=== PATIENT | male | born 1950 | race Caucasian/White ===

== ENCOUNTER 2019-07-25 13:52 | Inpatient (IN) ==
[2019-07-25] MEDS ORDERED: Furosemide 40 MG/4 ML VIAL IVP ONE (15:40)
[2019-07-25 15:43] LABS: White Blood Count 11.4 K/mcL (4.3-11.1)
[2019-07-25 15:44] LABS: Basophils # 0.1 K/mcL (0.0-0.2); Basophils % 0.7 %; Eosinophils # 0.4 K/mcL (0.0-0.6); Eosinophils % 3.2 %; Hematocrit 42.3 % (37.5-50.1); Immature Granulocytes % 0.5 % (0-4); Lymphocytes # 2.2 K/mcL (0.6-4.6); Lymphocytes % 18.9 %; Mean Corpuscular HGB Conc 33.1 g/dL (31.6-35.5); Mean Corpuscular Hemoglobin 27.7 pg (28.0-33.3); Mean Corpuscular Volume 83.6 fL (83.0-100.0); Mean Platelet Volume 10.5 fL (9.4-12.4); Monocytes # 0.9 K/mcL (0.0-1.3); Monocytes % 7.5 %; Neutrophils # 7.9 K/mcL (1.6-8.9); Platelet Count 299 K/mcL (140-400); Red Blood Count 5.06 M/mcL (4.19-5.50); Red Cell Distribution Width 14.8 % (11.5-14.5); Segmented Neutrophils % 69.2 %
[2019-07-25 16:01] LABS: BUN/Creatinine Ratio 13 (6-26); Blood Urea Nitrogen 12 mg/dL (8-23); Calcium 9.2 mg/dL (8.6-10.3); Carbon Dioxide 27 mEq/L (23-29); Chloride 103 mEq/L (98-107); Glucose 137 mg/dL (70-105); Osmolality,Calculated 290 (280-300); Potassium 4.1 mEq/L (3.5-5.1); Sodium 139 mEq/L (136-145); Troponin I 0.03 ng/mL (< 0.04); eGFR For African Americans > 60 (> 60); eGFR For Non-African Americans > 60 (> 60)
[2019-07-25] MEDS ORDERED: Aspirin 81 MG TAB.CHEW PO STA (16:21)
[2019-07-25] MEDS ORDERED: Naloxone 0.4 MG/ML INJ IVP PRN (16:41)
[2019-07-25] MEDS ORDERED: *HR* Dextrose 50 % in Water (Syg) 50 ML SYRINGE IVP PRN (16:46)
[2019-07-25] MEDS ORDERED: D5% in Water 1,000 ML IVC PRN (16:46)
[2019-07-25] MEDS ORDERED: Dextrose Gel 15 GM/37.5 ML TUBE PO PRN ×2 (16:46)
[2019-07-25] MEDS ORDERED: Ipratropium/Albuterol Neb 3 ML IH PRN (17:20)
[2019-07-25] MEDS ORDERED: Perflutren Lipid Microsphere 1.3 ML in 0.9 % Sodium Chloride 8.7 ML IVP ONE (18:55)
[2019-07-25] MEDS: Doxycycline 100 MG CAPSULE PO SCH (21:11)
[2019-07-25] MEDS: *HR* Heparin 5,000 UNIT/ML VIAL SQ SCH (21:11)
[2019-07-25] MEDS: Insulin DETEMIR 100 UNIT/ML X5UNITS SQ SCH (21:12)
[2019-07-25 22:02] LABS: Adenovirus Not Detected (Not Detect); Bordetella Pertussis Not Detected (Not Detect); Chlamydophila pneumoniae Not Detected (Not Detect); Coronavirus 229E Not Detected (Not Detect); Coronavirus HKU1 Not Detected (Not Detect); Coronavirus NL63 Not Detected (Not Detect); Coronavirus OC43 Not Detected (Not Detect); Human Metapneumovirus Not Detected (Not Detect); Human Rhinovirus/Enterovirus Not Detected (Not Detect); Influenza A Subtype 2009 H1 Not Detected (Not Detect); Influenza B Not Detected (Not Detect); Mycoplasma pneumoniae Not Detected (Not Detect); Parainfluenza Virus 1 Not Detected (Not Detect); Parainfluenza Virus 2 Not Detected (Not Detect); Parainfluenza Virus 3 Not Detected (Not Detect); Parainfluenza Virus 4 Not Detected (Not Detect); Respiratory Syncytial Virus Not Detected (Not Detect)
[2019-07-26] MEDS: Melatonin 3 MG TABLET PO PRN ×2 (00:03→20:41)
[2019-07-26 03:20] LABS: Basophils # 0.1 K/mcL (0.0-0.2); Basophils % 0.8 %; Eosinophils # 0.4 K/mcL (0.0-0.6); Eosinophils % 3.8 %; Hematocrit 46.5 % (37.5-50.1); Hemoglobin 14.5 g/dL (12.9-16.9); Immature Granulocytes % 0.5 % (0-4); Lymphocytes # 2.7 K/mcL (0.6-4.6); Lymphocytes % 25.8 %; Mean Corpuscular HGB Conc 31.2 g/dL (31.6-35.5); Mean Corpuscular Hemoglobin 27.5 pg (28.0-33.3); Mean Corpuscular Volume 88.2 fL (83.0-100.0); Neutrophils # 6.4 K/mcL (1.6-8.9); Platelet Count 262 K/mcL (140-400); Red Blood Count 5.27 M/mcL (4.19-5.50); Red Cell Distribution Width 14.9 % (11.5-14.5); Segmented Neutrophils % 60.1 %; White Blood Count 10.6 K/mcL (4.3-11.1)
[2019-07-26 03:47] LABS: BUN/Creatinine Ratio 14 (6-26); Blood Urea Nitrogen 15 mg/dL (8-23); Calcium 9.5 mg/dL (8.6-10.3); Carbon Dioxide 27 mEq/L (23-29); Chloride 104 mEq/L (98-107); Glucose 124 mg/dL (70-105); Magnesium 2.5 mg/dL (1.6-2.6); Osmolality,Calculated 290 (280-300); Phosphorous 4.4 mg/dL (2.7-4.5); Potassium 4.5 mEq/L (3.5-5.1); Sodium 139 mEq/L (136-145); eGFR For African Americans > 60 (> 60); eGFR For Non-African Americans > 60 (> 60)
[2019-07-26] MEDS: *HR* Heparin 5,000 UNIT/ML VIAL SQ SCH ×3 (05:14→20:49)
[2019-07-26] MEDS ORDERED: Furosemide 40 MG/4 ML VIAL IVP SCH (08:00)
[2019-07-26] MEDS: Doxycycline 100 MG CAPSULE PO SCH ×2 (09:09→20:41)
[2019-07-26] MEDS: Insulin LISPRO 300 UNITS/3 ML VIAL SQ SCH ×3 (09:12→17:02)
[2019-07-26] MEDS: Insulin DETEMIR 100 UNIT/ML X5UNITS SQ SCH (20:41)
[2019-07-27] MEDS: *HR* Heparin 5,000 UNIT/ML VIAL SQ SCH (05:01)
[2019-07-27 06:59] LABS: Hematocrit 47.7 % (37.5-50.1); Hemoglobin 14.8 g/dL (12.9-16.9); Mean Corpuscular Hemoglobin 27.3 pg (28.0-33.3); Mean Corpuscular Volume 87.8 fL (83.0-100.0); Platelet Count 244 K/mcL (140-400); Red Blood Count 5.43 M/mcL (4.19-5.50); White Blood Count 9.7 K/mcL (4.3-11.1)
[2019-07-27 07:00] VITALS: BP 166/86
[2019-07-27] MEDS: Insulin LISPRO 300 UNITS/3 ML VIAL SQ SCH (07:57)
[2019-07-27] MEDS: Doxycycline 100 MG CAPSULE PO SCH (08:04)
[2019-07-27] MEDS ORDERED: Furosemide 40 MG TABLET PO SCH (09:00)
[2019-07-27 09:30] LABS: BUN/Creatinine Ratio 16 (6-26); Blood Urea Nitrogen 16 mg/dL (8-23); Calcium 9.3 mg/dL (8.6-10.3); Carbon Dioxide 29 mEq/L (23-29); Chloride 101 mEq/L (98-107); Glucose 126 mg/dL (70-105); Osmolality,Calculated 291 (280-300); Potassium 4.1 mEq/L (3.5-5.1); Sodium 139 mEq/L (136-145); eGFR For African Americans > 60 (> 60); eGFR For Non-African Americans > 60 (> 60)
== END 2019-07-27 11:44 | disposition home or self-care (01) | DRG 292 ==
LOC: 3BNU 13:52 → EMEROOARM 13:52 → 3BNU 20:05
PROVIDERS: ADMIT Internal Medicine; ATTEND Internal Medicine

== ENCOUNTER 2019-10-11 14:09 | Inpatient (IN) ==
[2019-10-11 14:53] LABS: Basophils # 0.1 K/mcL (0.0-0.2); Basophils % 0.5 %; Eosinophils % 0.1 %; Hematocrit 44.7 % (37.5-50.1); Hemoglobin 13.8 g/dL (12.9-16.9); Immature Granulocytes % 1.6 % (0-4); Lymphocytes # 0.8 K/mcL (0.6-4.6); Lymphocytes % 5.6 %; Mean Corpuscular HGB Conc 30.9 g/dL (31.6-35.5); Mean Corpuscular Hemoglobin 26.3 pg (28.0-33.3); Mean Corpuscular Volume 85.3 fL (83.0-100.0); Monocytes # 0.3 K/mcL (0.0-1.3); Monocytes % 2.4 %; Neutrophils # 12.1 K/mcL (1.6-8.9); Platelet Count 306 K/mcL (140-400); Red Blood Count 5.24 M/mcL (4.19-5.50); Segmented Neutrophils % 89.8 %; White Blood Count 13.5 K/mcL (4.3-11.1)
[2019-10-11 15:03] LABS: INR 1.1; Prothrombin Time 12.8 Seconds (9.4-12.1)
[2019-10-11] MEDS ORDERED: Furosemide 20 MG/2 ML VIAL IVP ONE (15:05)
[2019-10-11 15:14] LABS: BUN/Creatinine Ratio 18 (6-26); Blood Urea Nitrogen 16 mg/dL (8-23); Calcium 9.5 mg/dL (8.6-10.3); Carbon Dioxide 26 mEq/L (23-29); Chloride 104 mEq/L (98-107); Glucose 180 mg/dL (70-105); Osmolality,Calculated 296 (280-300); Potassium 4.3 mEq/L (3.5-5.1); Sodium 140 mEq/L (136-145); Troponin I 0.03 ng/mL (< 0.04); eGFR For African Americans > 60 (> 60); eGFR For Non-African Americans > 60 (> 60)
[2019-10-11 15:26] LABS: C-Reactive Protein 6 mg/L (Less than 10)
[2019-10-11 15:45] LABS: Ferritin 74 ng/mL (20-250)
[2019-10-11] MEDS ORDERED: Ondansetron 4 MG/2 ML VIAL IVP PRN (16:54)
[2019-10-11] MEDS ORDERED: Naloxone 0.4 MG/ML INJ IVP PRN (16:54)
[2019-10-11] MEDS ORDERED: *HR* Dextrose 50 % in Water (Syg) 50 ML SYRINGE IVP PRN (17:18)
[2019-10-11] MEDS ORDERED: Dextrose Gel 15 GM/37.5 ML TUBE PO PRN ×2 (17:18)
[2019-10-11] MEDS ORDERED: D5% in Water 1,000 ML IVC PRN (17:18)
[2019-10-11] MEDS ORDERED: Ipratropium/Albuterol Neb 3 ML IH PRN (18:00)
[2019-10-11] MEDS: Benzonatate 100 MG CAPSULE PO PRN (20:45)
[2019-10-11] MEDS: Budesonide/Formoterol 80/4.5 1 PUFF INH IH SCH (22:28)
[2019-10-11] MEDS: Insulin LISPRO 300 UNITS/3 ML VIAL SQ SCH (23:27)
[2019-10-11] MEDS: Insulin DETEMIR 100 UNIT/ML X5UNITS SQ SCH (23:27)
[2019-10-12 01:59] LABS: Basophils % 0.2 %; Eosinophils % 0.1 %; Hematocrit 42.7 % (37.5-50.1); Hemoglobin 13.2 g/dL (12.9-16.9); Lymphocytes # 1.7 K/mcL (0.6-4.6); Mean Corpuscular HGB Conc 30.9 g/dL (31.6-35.5); Mean Corpuscular Hemoglobin 26.1 pg (28.0-33.3); Mean Corpuscular Volume 84.6 fL (83.0-100.0); Mean Platelet Volume 10.6 fL (9.4-12.4); Monocytes # 1.1 K/mcL (0.0-1.3); Monocytes % 7.3 %; Neutrophils # 11.5 K/mcL (1.6-8.9); Platelet Count 295 K/mcL (140-400); Red Blood Count 5.05 M/mcL (4.19-5.50); Segmented Neutrophils % 79.4 %; White Blood Count 14.5 K/mcL (4.3-11.1)
[2019-10-12] MEDS: Menthol 9.1 MG LOZENGE PO PRN ×3 (02:16→21:37)
[2019-10-12 02:18] LABS: BUN/Creatinine Ratio 20 (6-26); Blood Urea Nitrogen 19 mg/dL (8-23); Calcium 9.2 mg/dL (8.6-10.3); Carbon Dioxide 27 mEq/L (23-29); Chloride 103 mEq/L (98-107); Glucose 122 mg/dL (70-105); Osmolality,Calculated 290 (280-300); Potassium 3.9 mEq/L (3.5-5.1); Sodium 138 mEq/L (136-145); eGFR For African Americans > 60 (> 60); eGFR For Non-African Americans > 60 (> 60)
[2019-10-12] MEDS: Insulin LISPRO 300 UNITS/3 ML VIAL SQ SCH ×4 (07:40→20:01)
[2019-10-12] MEDS: Furosemide 20 MG/2 ML VIAL IVP SCH (08:10)
[2019-10-12] MEDS: Budesonide/Formoterol 80/4.5 1 PUFF INH IH SCH ×2 (10:29→20:20)
[2019-10-12] MEDS: Benzonatate 100 MG CAPSULE PO PRN (12:08)
[2019-10-12] MEDS: cefTRIAXone 2,000 MG in Water for inj. (sterile) 20 ML IVP SCH (12:23)
[2019-10-12] MEDS: Azithromycin 500 MG in 0.9 % Sodium Chloride 250 ML IVPB SCH (12:31)
[2019-10-12] MEDS: Insulin DETEMIR 100 UNIT/ML X5UNITS SQ SCH (20:09)
[2019-10-13] MEDS ORDERED: Acetaminophen 325 MG TABLET PO PRN (04:29)
[2019-10-13 07:40] LABS: Basophils # 0.1 K/mcL (0.0-0.2); Basophils % 0.5 %; Eosinophils # 0.2 K/mcL (0.0-0.6); Eosinophils % 1.8 %; Hematocrit 43.4 % (37.5-50.1); Hemoglobin 13.5 g/dL (12.9-16.9); Immature Granulocytes % 0.9 % (0-4); Lymphocytes # 2.9 K/mcL (0.6-4.6); Lymphocytes % 23.1 %; Mean Corpuscular HGB Conc 31.1 g/dL (31.6-35.5); Mean Corpuscular Hemoglobin 26.4 pg (28.0-33.3); Mean Corpuscular Volume 84.8 fL (83.0-100.0); Mean Platelet Volume 10.3 fL (9.4-12.4); Monocytes % 7.8 %; Neutrophils # 8.2 K/mcL (1.6-8.9); Platelet Count 292 K/mcL (140-400); Red Blood Count 5.12 M/mcL (4.19-5.50); Red Cell Distribution Width 16.2 % (11.5-14.5); Segmented Neutrophils % 65.9 %; White Blood Count 12.5 K/mcL (4.3-11.1)
[2019-10-13] MEDS: Budesonide/Formoterol 80/4.5 1 PUFF INH IH SCH ×2 (07:52→22:15)
[2019-10-13 07:58] LABS: BUN/Creatinine Ratio 18 (6-26); Blood Urea Nitrogen 16 mg/dL (8-23); Calcium 8.9 mg/dL (8.6-10.3); Carbon Dioxide 27 mEq/L (23-29); Chloride 106 mEq/L (98-107); Glucose 116 mg/dL (70-105); Osmolality,Calculated 290 (280-300); Sodium 139 mEq/L (136-145); eGFR For African Americans > 60 (> 60); eGFR For Non-African Americans > 60 (> 60)
[2019-10-13] MEDS: Insulin LISPRO 300 UNITS/3 ML VIAL SQ SCH ×2 (08:14→11:19)
[2019-10-13] MEDS: Furosemide 20 MG/2 ML VIAL IVP SCH (09:38)
[2019-10-13] MEDS: cefTRIAXone 2,000 MG in Water for inj. (sterile) 20 ML IVP SCH (11:23)
[2019-10-13] MEDS: Azithromycin 500 MG in 0.9 % Sodium Chloride 250 ML IVPB SCH (11:23)
[2019-10-13] MEDS: *HR* Metformin 500 MG TABLET PO SCH (15:47)
[2019-10-13] MEDS: Menthol 9.1 MG LOZENGE PO PRN ×2 (15:54→20:00)
[2019-10-13] MEDS: *HR* Heparin 5,000 UNIT/ML VIAL SQ SCH (17:20)
[2019-10-13] MEDS: Insulin DETEMIR 100 UNIT/ML X5UNITS SQ SCH (21:06)
[2019-10-14] MEDS: *HR* Heparin 5,000 UNIT/ML VIAL SQ SCH (06:05)
[2019-10-14] MEDS: Menthol 9.1 MG LOZENGE PO PRN (06:06)
[2019-10-14 06:56] VITALS: BP 166/93
[2019-10-14] MEDS: *HR* Metformin 500 MG TABLET PO SCH (07:51)
[2019-10-14] MEDS ORDERED: Furosemide 20 MG TABLET PO SCH (09:00)
== END 2019-10-14 08:38 | disposition home or self-care (01) | DRG 291 ==
LOC: EMEROOARM 14:09 → 3BNU 14:09 → SUATTDRO 10-12 10:47
PROVIDERS: ADMIT Internal Medicine; ATTEND Internal Medicine

== ENCOUNTER 2019-12-12 14:07 | Observation (INO) ==
[2019-12-12 15:23] LABS: Basophils # 0.1 K/mcL (0.0-0.2); Basophils % 0.4 %; Eosinophils # 0.2 K/mcL (0.0-0.6); Eosinophils % 1.3 %; Hematocrit 42.8 % (37.5-50.1); Hemoglobin 13.3 g/dL (12.9-16.9); Immature Granulocytes % 0.6 % (0-4); Lymphocytes # 1.9 K/mcL (0.6-4.6); Lymphocytes % 13.6 %; Mean Corpuscular HGB Conc 31.1 g/dL (31.6-35.5); Mean Corpuscular Hemoglobin 26.7 pg (28.0-33.3); Mean Corpuscular Volume 85.8 fL (83.0-100.0); Mean Platelet Volume 11.4 fL (9.4-12.4); Monocytes # 1.1 K/mcL (0.0-1.3); Monocytes % 8.2 %; Neutrophils # 10.3 K/mcL (1.6-8.9); Platelet Count 249 K/mcL (140-400); Red Blood Count 4.99 M/mcL (4.19-5.50); Red Cell Distribution Width 15.8 % (11.5-14.5); Segmented Neutrophils % 75.9 %; White Blood Count 13.6 K/mcL (4.3-11.1)
[2019-12-12 15:59] LABS: Alanine Aminotransferase 17 Units/L (7-52); Albumin/Globulin Ratio 1.3 (1.1-2.2); Alkaline Phosphatase 58 Units/L (34-104); Aspartate Amino Transferase 15 Units/L (13-39); BUN/Creatinine Ratio 16 (6-26); Bilirubin,Total 0.6 mg/dL (0.3-1.0); Blood Urea Nitrogen 15 mg/dL (8-23); Calcium 9.4 mg/dL (8.6-10.3); Carbon Dioxide 24 mEq/L (23-29); Chloride 106 mEq/L (98-107); Glucose 110 mg/dL (70-105); Osmolality,Calculated 289 (280-300); Potassium 4.2 mEq/L (3.5-5.1); Sodium 139 mEq/L (136-145); Troponin I 0.03 ng/mL (< 0.04); eGFR For African Americans > 60 (> 60); eGFR For Non-African Americans > 60 (> 60)
[2019-12-12] MEDS ORDERED: MetroNIDAZOLE 500 MG/100 ML 500 MG/100 ML BAG IVPB ONE (16:54)
[2019-12-12] MEDS ORDERED: Naloxone 0.4 MG/ML INJ IVP PRN (17:27)
[2019-12-12] MEDS ORDERED: Ipratropium/Albuterol Neb 3 ML IH PRN (17:33)
[2019-12-12] MEDS ORDERED: Furosemide 40 MG/4 ML VIAL IVP ONE (17:33)
[2019-12-12] MEDS: Ipratropium/Albuterol Neb 3 ML IH SCH ×2 (20:34→21:37)
[2019-12-12] MEDS: Insulin LISPRO 300 UNITS/3 ML VIAL SQ SCH (20:45)
[2019-12-12] MEDS: Budesonide/Formoterol 80/4.5 1 PUFF INH IH SCH (21:37)
[2019-12-12] MEDS ORDERED: Melatonin 3 MG TABLET PO ONE (23:31)
[2019-12-12] MEDS: MetroNIDAZOLE 500 MG/100 ML 500 MG/100 ML BAG IVPB SCH (23:50)
[2019-12-13 01:16] LABS: Basophils # 0.1 K/mcL (0.0-0.2); Basophils % 0.4 %; Eosinophils # 0.2 K/mcL (0.0-0.6); Eosinophils % 1.6 %; Hematocrit 39.9 % (37.5-50.1); Hemoglobin 12.3 g/dL (12.9-16.9); Immature Granulocytes % 0.4 % (0-4); Lymphocytes # 1.9 K/mcL (0.6-4.6); Lymphocytes % 16.5 %; Mean Corpuscular HGB Conc 30.8 g/dL (31.6-35.5); Mean Corpuscular Hemoglobin 26.3 pg (28.0-33.3); Mean Corpuscular Volume 85.4 fL (83.0-100.0); Mean Platelet Volume 10.8 fL (9.4-12.4); Monocytes # 1.1 K/mcL (0.0-1.3); Monocytes % 9.2 %; Neutrophils # 8.3 K/mcL (1.6-8.9); Platelet Count 251 K/mcL (140-400); Red Blood Count 4.67 M/mcL (4.19-5.50); Red Cell Distribution Width 15.6 % (11.5-14.5); Segmented Neutrophils % 71.9 %; White Blood Count 11.5 K/mcL (4.3-11.1)
[2019-12-13 01:37] LABS: BUN/Creatinine Ratio 19 (6-26); Blood Urea Nitrogen 19 mg/dL (8-23); Calcium 8.8 mg/dL (8.6-10.3); Carbon Dioxide 26 mEq/L (23-29); Chloride 105 mEq/L (98-107); Glucose 141 mg/dL (70-105); Osmolality,Calculated 291 (280-300); Potassium 3.8 mEq/L (3.5-5.1); Sodium 138 mEq/L (136-145); eGFR For African Americans > 60 (> 60); eGFR For Non-African Americans > 60 (> 60)
[2019-12-13] MEDS: Ipratropium/Albuterol Neb 3 ML IH SCH ×4 (03:33→22:42)
[2019-12-13] MEDS: Budesonide/Formoterol 80/4.5 1 PUFF INH IH SCH ×2 (09:46→22:42)
[2019-12-13] MEDS: MetroNIDAZOLE 500 MG/100 ML 500 MG/100 ML BAG IVPB SCH ×2 (10:41→16:44)
[2019-12-13] MEDS: lisinopriL 10 MG TABLET PO SCH (10:41)
[2019-12-13] MEDS: Furosemide 20 MG TABLET PO SCH (10:41)
[2019-12-13] MEDS: Insulin LISPRO 300 UNITS/3 ML VIAL SQ SCH ×4 (10:42→20:42)
[2019-12-14] MEDS: MetroNIDAZOLE 500 MG/100 ML 500 MG/100 ML BAG IVPB SCH (00:35)
[2019-12-14] MEDS: Ipratropium/Albuterol Neb 3 ML IH SCH ×2 (04:16→10:34)
[2019-12-14 06:54] LABS: Basophils # 0.1 K/mcL (0.0-0.2); Basophils % 0.5 %; Eosinophils # 0.3 K/mcL (0.0-0.6); Hematocrit 42.7 % (37.5-50.1); Hemoglobin 12.8 g/dL (12.9-16.9); Immature Granulocytes % 0.7 % (0-4); Lymphocytes # 1.5 K/mcL (0.6-4.6); Lymphocytes % 15.1 %; Mean Corpuscular Hemoglobin 25.9 pg (28.0-33.3); Mean Corpuscular Volume 86.4 fL (83.0-100.0); Mean Platelet Volume 10.8 fL (9.4-12.4); Monocytes # 1.1 K/mcL (0.0-1.3); Neutrophils # 6.9 K/mcL (1.6-8.9); Platelet Count 279 K/mcL (140-400); Red Blood Count 4.94 M/mcL (4.19-5.50); Red Cell Distribution Width 15.6 % (11.5-14.5); Segmented Neutrophils % 69.7 %; White Blood Count 9.8 K/mcL (4.3-11.1)
[2019-12-14 07:25] VITALS: BP 145/85
[2019-12-14] MEDS: Insulin LISPRO 300 UNITS/3 ML VIAL SQ SCH (07:53)
[2019-12-14] MEDS: lisinopriL 10 MG TABLET PO SCH (09:29)
[2019-12-14] MEDS: Furosemide 20 MG TABLET PO SCH (09:29)
[2019-12-14] MEDS: Budesonide/Formoterol 80/4.5 1 PUFF INH IH SCH (10:34)
== END 2019-12-14 12:16 | disposition home or self-care (01) ==
LOC: 3BNU 14:07 → EMEROOARM 14:07 → 3BNU 18:59
PROVIDERS: ADMIT Internal Medicine; ATTEND Internal Medicine

== ENCOUNTER 2020-02-02 17:13 | Observation (INO) ==
[2020-02-02 18:10] LABS: INR 1.1; Prothrombin Time 12.4 Seconds (9.4-12.1)
[2020-02-02 18:13] LABS: Activated Partial Thrombo Time 23.8 Seconds (26.0-36.0)
[2020-02-02 18:27] LABS: Basophils # 0.1 K/mcL (0.0-0.2); Basophils % 0.6 %; Eosinophils # 0.2 K/mcL (0.0-0.6); Eosinophils % 1.8 %; Hematocrit 43.7 % (37.5-50.1); Hemoglobin 13.5 g/dL (12.9-16.9); Immature Granulocytes % 0.5 % (0-4); Lymphocytes # 1.8 K/mcL (0.6-4.6); Lymphocytes % 16.7 %; Mean Corpuscular HGB Conc 30.9 g/dL (31.6-35.5); Mean Corpuscular Hemoglobin 26.1 pg (28.0-33.3); Mean Corpuscular Volume 84.4 fL (83.0-100.0); Mean Platelet Volume 10.7 fL (9.4-12.4); Monocytes # 1.1 K/mcL (0.0-1.3); Monocytes % 9.7 %; Neutrophils # 7.7 K/mcL (1.6-8.9); Platelet Count 282 K/mcL (140-400); Red Blood Count 5.18 M/mcL (4.19-5.50); Red Cell Distribution Width 15.9 % (11.5-14.5); Segmented Neutrophils % 70.7 %; White Blood Count 10.8 K/mcL (4.3-11.1)
[2020-02-02 18:38] LABS: Alanine Aminotransferase 17 Units/L (7-52); Albumin/Globulin Ratio 1.3 (1.1-2.2); Alkaline Phosphatase 55 Units/L (34-104); Aspartate Amino Transferase 15 Units/L (13-39); BUN/Creatinine Ratio 17 (6-26); Bilirubin,Direct 0.1 mg/dL (0.0-0.2); Bilirubin,Indirect 0.4 mg/dL (0.0-1.0); Bilirubin,Total 0.5 mg/dL (0.3-1.0); Blood Urea Nitrogen 14 mg/dL (8-23); Calcium 9.5 mg/dL (8.6-10.3); Carbon Dioxide 24 mEq/L (23-29); Chloride 106 mEq/L (98-107); Globulin 3.1 g/dL (2.4-3.5); Glucose 114 mg/dL (70-105); Lipase 36 Units/L (11-82); Osmolality,Calculated 289 (280-300); Potassium 3.8 mEq/L (3.5-5.1); Sodium 139 mEq/L (136-145); Total Protein 7.1 g/dL (6.4-8.9); Troponin I 0.04 ng/mL (< 0.04); eGFR For African Americans > 60 (> 60); eGFR For Non-African Americans > 60 (> 60)
[2020-02-02] MEDS ORDERED: Isovue-370 500 ML BOTTLE IVP ONE (19:17)
[2020-02-02 20:11] LABS: Bilirubin,Urine Negative (Negative); Blood,Urine Negative (Negative); Clarity,Urine Clear (Clear); Color,Urine Light-Yellow (Yellow); Glucose,Urine (UA) Normal (Normal); Ketones,Urine Negative (Negative); Leukocyte Esterase,Urine Negative (Negative); Nitrite,Urine Negative (Negative); Protein,Urine Trace mg/dL (Neg-Trace); Specific Gravity,Urine 1.016 (1.010-1.025); Urobilinogen,Urine Normal (Normal)
[2020-02-02] MEDS ORDERED: Naloxone 0.4 MG/ML INJ IVP PRN (20:12)
[2020-02-02] MEDS ORDERED: Ondansetron 4 MG/2 ML VIAL IVP PRN (20:17)
[2020-02-02] MEDS ORDERED: Dextrose Gel 15 GM/37.5 ML TUBE PO PRN ×2 (20:47)
[2020-02-02] MEDS ORDERED: *HR* Dextrose 50 % in Water (Vial) 50 ML VIAL IVP PRN (20:47)
[2020-02-02] MEDS ORDERED: D5% in Water 1,000 ML IVC PRN (20:47)
[2020-02-02 21:22] LABS: Adenovirus Not Detected (Not Detect); Coronavirus 229E Not Detected (Not Detect); Coronavirus HKU1 Not Detected (Not Detect)
[2020-02-02 21:23] LABS: Coronavirus NL63 Not Detected (Not Detect); Coronavirus OC43 Not Detected (Not Detect); SARS-CoV-2 Not Detected (Not Detect)
[2020-02-02 21:24] LABS: Bordetella Pertussis Not Detected (Not Detect); Chlamydophila pneumoniae Not Detected (Not Detect); Human Metapneumovirus Not Detected (Not Detect); Human Rhinovirus/Enterovirus Not Detected (Not Detect); Influenza A Subtype 2009 H1 Not Detected (Not Detect); Influenza B Not Detected (Not Detect); Mycoplasma pneumoniae Not Detected (Not Detect); Parainfluenza Virus 1 Not Detected (Not Detect); Parainfluenza Virus 2 Not Detected (Not Detect); Parainfluenza Virus 3 Not Detected (Not Detect); Parainfluenza Virus 4 Not Detected (Not Detect); Respiratory Syncytial Virus Not Detected (Not Detect)
[2020-02-02] MEDS: Insulin LISPRO 300 UNITS/3 ML VIAL SQ SCH (22:54)
[2020-02-02] MEDS: Furosemide 40 MG/4 ML VIAL IVP SCH (22:59)
[2020-02-02] MEDS: Insulin DETEMIR 100 UNIT/ML X5UNITS SQ SCH (22:59)
[2020-02-02] MEDS ORDERED: Ipratropium/Albuterol Neb 3 ML IH PRN (23:24)
[2020-02-03] MEDS ORDERED: Acetaminophen 325 MG TABLET PO PRN (03:16)
[2020-02-03 03:54] LABS: Basophils # 0.1 K/mcL (0.0-0.2); Basophils % 0.7 %; Eosinophils # 0.3 K/mcL (0.0-0.6); Eosinophils % 2.7 %; Hematocrit 43.4 % (37.5-50.1); Hemoglobin 13.3 g/dL (12.9-16.9); Immature Granulocytes % 0.6 % (0-4); Lymphocytes # 2.1 K/mcL (0.6-4.6); Lymphocytes % 19.6 %; Mean Corpuscular HGB Conc 30.6 g/dL (31.6-35.5); Mean Corpuscular Volume 84.9 fL (83.0-100.0); Mean Platelet Volume 11.2 fL (9.4-12.4); Monocytes # 1.1 K/mcL (0.0-1.3); Monocytes % 10.5 %; Neutrophils # 7.1 K/mcL (1.6-8.9); Platelet Count 279 K/mcL (140-400); Red Blood Count 5.11 M/mcL (4.19-5.50); Red Cell Distribution Width 16.2 % (11.5-14.5); Segmented Neutrophils % 65.9 %; White Blood Count 10.8 K/mcL (4.3-11.1)
[2020-02-03 03:56] LABS: INR 1.1; Prothrombin Time 12.4 Seconds (9.4-12.1)
[2020-02-03 04:13] LABS: BUN/Creatinine Ratio 15 (6-26); Blood Urea Nitrogen 15 mg/dL (8-23); Calcium 8.8 mg/dL (8.6-10.3); Carbon Dioxide 26 mEq/L (23-29); Chloride 103 mEq/L (98-107); Chol/HDL Ratio 4.9 (0-4.9); Cholesterol 157 mg/dL (< 200); Glucose 162 mg/dL (70-105); HDL Cholesterol 32 mg/dL (40-59); LDL Cholesterol,Calculated 102 mg/dL (< 100); Magnesium 2.2 mg/dL (1.6-2.6); Osmolality,Calculated 292 (280-300); Potassium 3.6 mEq/L (3.5-5.1); Sodium 139 mEq/L (136-145); Triglycerides 117 mg/dL (< 150); eGFR For African Americans > 60 (> 60); eGFR For Non-African Americans > 60 (> 60)
[2020-02-03] MEDS: Furosemide 40 MG/4 ML VIAL IVP SCH ×2 (07:28→21:33)
[2020-02-03] MEDS: Insulin LISPRO 300 UNITS/3 ML VIAL SQ SCH ×4 (07:31→21:28)
[2020-02-03] MEDS ORDERED: lisinopriL 10 MG TABLET PO SCH (09:00)
[2020-02-03] MEDS: Insulin DETEMIR 100 UNIT/ML X5UNITS SQ SCH (21:33)
[2020-02-04] MEDS ORDERED: Melatonin 3 MG TABLET PO PRN (00:37)
[2020-02-04 06:51] VITALS: BP 147/76
[2020-02-04 07:02] LABS: BUN/Creatinine Ratio 16 (6-26); Blood Urea Nitrogen 16 mg/dL (8-23); Calcium 8.9 mg/dL (8.6-10.3); Carbon Dioxide 25 mEq/L (23-29); Chloride 105 mEq/L (98-107); Glucose 125 mg/dL (70-105); Magnesium 2.5 mg/dL (1.6-2.6); Osmolality,Calculated 289 (280-300); Potassium 4.5 mEq/L (3.5-5.1); Sodium 138 mEq/L (136-145); eGFR For African Americans > 60 (> 60); eGFR For Non-African Americans > 60 (> 60)
[2020-02-04] MEDS: Furosemide 40 MG/4 ML VIAL IVP SCH (07:41)
[2020-02-04] MEDS: Insulin LISPRO 300 UNITS/3 ML VIAL SQ SCH (07:41)
== END 2020-02-04 10:37 | disposition home or self-care (01) ==
LOC: EMEROOARM 17:13 → 3BNU 17:13 → SUATTDRO 21:30 → 3BNU 22:04
PROVIDERS: ADMIT Internal Medicine; ATTEND Internal Medicine

== ENCOUNTER 2020-03-23 23:58 | Inpatient (IN) ==
[2020-03-24] MEDS ORDERED: Ipratropium/Albuterol Neb 3 ML IH ONE (00:51)
[2020-03-24 01:22] LABS: Basophils # 0.1 K/mcL (0.0-0.2); Basophils % 0.7 %; Eosinophils # 0.2 K/mcL (0.0-0.6); Hematocrit 41.4 % (37.5-50.1); Hemoglobin 12.4 g/dL (12.9-16.9); Immature Granulocytes % 0.4 % (0-4); Lymphocytes # 2.2 K/mcL (0.6-4.6); Lymphocytes % 20.7 %; Mean Corpuscular Hemoglobin 25.3 pg (28.0-33.3); Mean Corpuscular Volume 84.3 fL (83.0-100.0); Mean Platelet Volume 11.2 fL (9.4-12.4); Monocytes # 0.9 K/mcL (0.0-1.3); Monocytes % 8.8 %; Neutrophils # 7.2 K/mcL (1.6-8.9); Platelet Count 303 K/mcL (140-400); Red Blood Count 4.91 M/mcL (4.19-5.50); Red Cell Distribution Width 15.9 % (11.5-14.5); Segmented Neutrophils % 67.4 %; White Blood Count 10.7 K/mcL (4.3-11.1)
[2020-03-24 01:44] LABS: Alanine Aminotransferase 20 Units/L (7-52); Albumin 3.9 g/dL (3.5-5.7); Albumin/Globulin Ratio 1.4 (1.1-2.2); Alkaline Phosphatase 62 Units/L (34-104); Aspartate Amino Transferase 16 Units/L (13-39); BUN/Creatinine Ratio 17 (6-26); Bilirubin,Direct 0.2 mg/dL (0.0-0.2); Bilirubin,Indirect 0.4 mg/dL (0.0-1.0); Bilirubin,Total 0.6 mg/dL (0.3-1.0); Blood Urea Nitrogen 20 mg/dL (8-23); Calcium 9.2 mg/dL (8.6-10.3); Carbon Dioxide 26 mEq/L (23-29); Chloride 105 mEq/L (98-107); Globulin 2.8 g/dL (2.4-3.5); Glucose 137 mg/dL (70-105); Osmolality,Calculated 295 (280-300); Potassium 3.4 mEq/L (3.5-5.1); Sodium 140 mEq/L (136-145); Total Protein 6.7 g/dL (6.4-8.9); Troponin I 0.03 ng/mL (< 0.04); eGFR For African Americans > 60 (> 60); eGFR For Non-African Americans > 60 (> 60)
[2020-03-24 01:53] LABS: INR 1.1; Prothrombin Time 12.7 Seconds (9.4-12.1)
[2020-03-24 01:56] LABS: Activated Partial Thrombo Time 28.8 Seconds (26.0-36.0)
[2020-03-24] MEDS ORDERED: Furosemide 40 MG/4 ML VIAL IVP ONE (02:02)
[2020-03-24] MEDS ORDERED: Naloxone 0.4 MG/ML INJ IVP PRN (05:03)
[2020-03-24] MEDS ORDERED: Ondansetron 4 MG/2 ML VIAL IVP PRN (05:03)
[2020-03-24] MEDS ORDERED: Perflutren Lipid Microsphere 1.3 ML in 0.9 % Sodium Chloride 8.7 ML IVP PRN (05:10)
[2020-03-24 05:12] LABS: Adenovirus Not Detected (Not Detect); Bordetella Pertussis Not Detected (Not Detect); Chlamydophila pneumoniae Not Detected (Not Detect); Coronavirus 229E Not Detected (Not Detect); Coronavirus HKU1 Not Detected (Not Detect); Coronavirus NL63 Not Detected (Not Detect); Coronavirus OC43 Not Detected (Not Detect); Human Metapneumovirus Not Detected (Not Detect); Human Rhinovirus/Enterovirus Not Detected (Not Detect); Influenza A Subtype 2009 H1 Not Detected (Not Detect); Influenza B Not Detected (Not Detect); Mycoplasma pneumoniae Not Detected (Not Detect); Parainfluenza Virus 1 Not Detected (Not Detect); Parainfluenza Virus 2 Not Detected (Not Detect); Parainfluenza Virus 3 Not Detected (Not Detect); Parainfluenza Virus 4 Not Detected (Not Detect); Respiratory Syncytial Virus Not Detected (Not Detect); SARS-CoV-2 Not Detected (Not Detect)
[2020-03-24] MEDS ORDERED: Ipratropium/Albuterol Neb 3 ML IH PRN (05:42)
[2020-03-24] MEDS ORDERED: *HR* Heparin 5,000 UNIT/ML VIAL SQ SCH (06:00)
[2020-03-24] MEDS ORDERED: *HR* Dextrose 50 % in Water (Vial) 50 ML VIAL IVP PRN (07:01)
[2020-03-24] MEDS ORDERED: D5% in Water 1,000 ML IVC PRN (07:01)
[2020-03-24] MEDS ORDERED: Dextrose Gel 15 GM/37.5 ML TUBE PO PRN ×2 (07:01)
[2020-03-24 07:31] LABS: Thyroid Stimulating Hormone 2.475 mcIU/mL (0.340-5.600)
[2020-03-24] MEDS: Insulin LISPRO 300 UNITS/3 ML VIAL SQ SCH ×4 (08:45→20:35)
[2020-03-24] MEDS: Furosemide 40 MG/4 ML VIAL IVP SCH ×2 (08:45→18:14)
[2020-03-24] MEDS ORDERED: *HR* Heparin 5,000 UNIT/ML VIAL IVP PRN ×2 (10:18)
[2020-03-24] MEDS ORDERED: *HR* Heparin 5,000 UNIT/ML VIAL IVP ONE (10:18)
[2020-03-24] MEDS: Heparin 25,000UNIT/250ML 1/2NS 25,000 UNIT/250 ML IV.SOLN IVC SCH (11:12)
[2020-03-24 12:55] LABS: Hematocrit 42.6 % (37.5-50.1); Hemoglobin 12.9 g/dL (12.9-16.9); Mean Corpuscular HGB Conc 30.3 g/dL (31.6-35.5); Mean Corpuscular Hemoglobin 25.3 pg (28.0-33.3); Mean Corpuscular Volume 83.7 fL (83.0-100.0); Mean Platelet Volume 10.7 fL (9.4-12.4); Platelet Count 315 K/mcL (140-400); Red Blood Count 5.09 M/mcL (4.19-5.50); Red Cell Distribution Width 15.9 % (11.5-14.5); White Blood Count 11.9 K/mcL (4.3-11.1)
[2020-03-24 13:07] LABS: INR 1.3; Prothrombin Time 14.3 Seconds (9.4-12.1)
[2020-03-24 13:14] LABS: Magnesium 2.3 mg/dL (1.6-2.6); Phosphorous 3.8 mg/dL (2.7-4.5)
[2020-03-24 13:15] LABS: Heparin anti-factor XA UFH 1.14 IU/mL (0.30-0.70)
[2020-03-25 04:07] LABS: Basophils # 0.1 K/mcL (0.0-0.2); Basophils % 0.7 %; Eosinophils # 0.3 K/mcL (0.0-0.6); Eosinophils % 2.8 %; Hematocrit 41.3 % (37.5-50.1); Hemoglobin 12.3 g/dL (12.9-16.9); Immature Granulocytes % 0.6 % (0-4); Lymphocytes # 2.4 K/mcL (0.6-4.6); Lymphocytes % 22.5 %; Mean Corpuscular HGB Conc 29.8 g/dL (31.6-35.5); Mean Corpuscular Hemoglobin 25.3 pg (28.0-33.3); Mean Corpuscular Volume 84.8 fL (83.0-100.0); Mean Platelet Volume 10.5 fL (9.4-12.4); Monocytes # 1.1 K/mcL (0.0-1.3); Monocytes % 10.3 %; Neutrophils # 6.8 K/mcL (1.6-8.9); Platelet Count 297 K/mcL (140-400); Red Blood Count 4.87 M/mcL (4.19-5.50); Segmented Neutrophils % 63.1 %; White Blood Count 10.8 K/mcL (4.3-11.1)
[2020-03-25 04:25] LABS: BUN/Creatinine Ratio 18 (6-26); Blood Urea Nitrogen 20 mg/dL (8-23); Calcium 9.2 mg/dL (8.6-10.3); Carbon Dioxide 31 mEq/L (23-29); Chloride 104 mEq/L (98-107); Glucose 132 mg/dL (70-105); Magnesium 2.5 mg/dL (1.6-2.6); Osmolality,Calculated 296 (280-300); Phosphorous 4.4 mg/dL (2.7-4.5); Potassium 3.8 mEq/L (3.5-5.1); Sodium 141 mEq/L (136-145); eGFR For African Americans > 60 (> 60); eGFR For Non-African Americans > 60 (> 60)
[2020-03-25] MEDS: Insulin LISPRO 300 UNITS/3 ML VIAL SQ SCH ×4 (07:47→21:32)
[2020-03-25] MEDS: Furosemide 40 MG/4 ML VIAL IVP SCH ×2 (08:03→17:41)
[2020-03-25] MEDS: Heparin 25,000UNIT/250ML 1/2NS 25,000 UNIT/250 ML IV.SOLN IVC SCH (08:19)
[2020-03-25] MEDS ORDERED: lisinopriL 5 MG TABLET PO SCH (13:30)
[2020-03-25] MEDS: Spironolactone 25 MG TABLET PO SCH (14:41)
[2020-03-25] MEDS: carvediloL 6.25 MG TABLET PO SCH (17:41)
[2020-03-25] MEDS: Apixaban 5 MG TABLET PO SCH (22:02)
[2020-03-26 07:03] LABS: Basophils # 0.1 K/mcL (0.0-0.2); Basophils % 0.8 %; Eosinophils # 0.3 K/mcL (0.0-0.6); Eosinophils % 3.2 %; Hematocrit 40.5 % (37.5-50.1); Hemoglobin 12.1 g/dL (12.9-16.9); Immature Granulocytes % 0.6 % (0-4); Lymphocytes # 1.4 K/mcL (0.6-4.6); Lymphocytes % 16.3 %; Mean Corpuscular HGB Conc 29.9 g/dL (31.6-35.5); Mean Corpuscular Hemoglobin 25.3 pg (28.0-33.3); Mean Corpuscular Volume 84.7 fL (83.0-100.0); Mean Platelet Volume 10.6 fL (9.4-12.4); Monocytes % 11.5 %; Platelet Count 303 K/mcL (140-400); Red Blood Count 4.78 M/mcL (4.19-5.50); Red Cell Distribution Width 16.1 % (11.5-14.5); Segmented Neutrophils % 67.6 %; White Blood Count 8.8 K/mcL (4.3-11.1)
[2020-03-26 07:32] LABS: BUN/Creatinine Ratio 21 (6-26); Blood Urea Nitrogen 22 mg/dL (8-23); Calcium 8.9 mg/dL (8.6-10.3); Carbon Dioxide 30 mEq/L (23-29); Chloride 102 mEq/L (98-107); Glucose 135 mg/dL (70-105); Osmolality,Calculated 295 (280-300); Potassium 3.9 mEq/L (3.5-5.1); Sodium 140 mEq/L (136-145); eGFR For African Americans > 60 (> 60); eGFR For Non-African Americans > 60 (> 60)
[2020-03-26 08:14] VITALS: BP 136/76
[2020-03-26] MEDS ORDERED: carvediloL 6.25 MG TABLET PO SCH (08:30)
[2020-03-26] MEDS: Insulin LISPRO 300 UNITS/3 ML VIAL SQ SCH (08:34)
[2020-03-26] MEDS: Apixaban 5 MG TABLET PO SCH (08:37)
[2020-03-26] MEDS: Spironolactone 25 MG TABLET PO SCH (08:37)
[2020-03-26] MEDS: Furosemide 40 MG/4 ML VIAL IVP SCH (08:38)
[2020-03-26] MEDS: carvediloL 6.25 MG TABLET PO SCH (09:19)
== END 2020-03-26 13:39 | disposition home or self-care (01) | DRG 291 ==
LOC: 2ANU 23:58 → EMEROOARM 23:58 → SUATTDRO 03-24 02:56 → 2ANU 03-24 05:47
PROVIDERS: ADMIT Student in an Organized Health Care Education/Training Program; ATTEND Family Medicine

== ENCOUNTER 2020-08-01 12:44 | Inpatient (IN) ==
[2020-08-01] MEDS ORDERED: *HR* Metoprolol 5 MG/5 ML VIAL IVP ONE (13:08)
[2020-08-01 14:02] LABS: Basophils % 0.5 %; Hemoglobin 7.2 g/dL (12.9-16.9); Red Cell Distribution Width 17.2 % (11.5-14.5)
[2020-08-01 14:05] LABS: Basophils # 0.1 K/mcL (0.0-0.2); Eosinophils # 0.2 K/mcL (0.0-0.6); Eosinophils % 1.4 %; Hematocrit 26.7 % (37.5-50.1); Immature Granulocytes % 0.9 % (0-4); Lymphocytes # 2.4 K/mcL (0.6-4.6); Lymphocytes % 15.6 %; Mean Corpuscular Hemoglobin 20.4 pg (28.0-33.3); Mean Corpuscular Volume 75.6 fL (83.0-100.0); Mean Platelet Volume 9.5 fL (9.4-12.4); Monocytes # 1.4 K/mcL (0.0-1.3); Monocytes % 9.2 %; Neutrophils # 11.1 K/mcL (1.6-8.9); Nucleated Red Blood Cells 0.6 /100 WBC (0); Platelet Count 495 K/mcL (140-400); Red Blood Count 3.53 M/mcL (4.19-5.50); Segmented Neutrophils % 72.4 %; White Blood Count 15.3 K/mcL (4.3-11.1)
[2020-08-01 14:21] LABS: Albumin 3.9 g/dL (3.5-5.7); Albumin/Globulin Ratio 1.2 (1.1-2.2); Bilirubin,Direct 0.1 mg/dL (0.0-0.2); Bilirubin,Indirect 0.3 mg/dL (0.0-1.0); Bilirubin,Total 0.4 mg/dL (0.3-1.0); Globulin 3.2 g/dL (2.4-3.5); Total Protein 7.1 g/dL (6.4-8.9)
[2020-08-01 14:22] LABS: BUN/Creatinine Ratio 14 (6-26); Blood Urea Nitrogen 14 mg/dL (8-23); Calcium 8.7 mg/dL (8.6-10.3); Carbon Dioxide 25 mEq/L (23-29); Chloride 108 mEq/L (98-107); Glucose 101 mg/dL (70-105); Magnesium 2.5 mg/dL (1.6-2.6); Osmolality,Calculated 289 (280-300); Potassium 4.4 mEq/L (3.5-5.1); Sodium 139 mEq/L (136-145); eGFR For African Americans > 60 (> 60); eGFR For Non-African Americans > 60 (> 60)
[2020-08-01 14:44] LABS: Hypochromasia Present (Not Present)
[2020-08-01 14:45] LABS: Anisocytosis 1+ (Not Present); Ovalocytes 1+ (Not Present); Platelet Estimate Increased (Normal)
[2020-08-01 16:26] LABS: Troponin I < 0.03 ng/mL (< 0.04)
[2020-08-01 16:50] LABS: Hematocrit 21.4 % (37.5-50.1)
[2020-08-01 16:56] LABS: Hemoglobin 5.9 g/dL (12.9-16.9)
[2020-08-01] MEDS ORDERED: SODIUM CHLORIDE/NAHCO3/KCL/PEG 4,000 ML SOLN.RECON PO ONE ×3 (17:00→22:00)
[2020-08-01] MEDS ORDERED: Naloxone 0.4 MG/ML INJ IVP PRN (17:06)
[2020-08-01] MEDS ORDERED: Pantoprazole 40 MG VIAL IVP ONE ×2 (17:10→17:22)
[2020-08-01] MEDS ORDERED: Acetaminophen 325 MG TABLET PO PRN (17:15)
[2020-08-01] MEDS ORDERED: Ondansetron 4 MG/2 ML VIAL IVP PRN (17:15)
[2020-08-01 17:23] LABS: INR 1.3; Prothrombin Time 15.4 Seconds (9.4-12.1)
[2020-08-01 17:25] LABS: Activated Partial Thrombo Time 27.6 Seconds (26.0-36.0)
[2020-08-01] MEDS ORDERED: Metoclopramide 10 MG/2 ML VIAL IVP ONE (17:35)
[2020-08-01] MEDS ORDERED: Perflutren Lipid Microsphere 1.3 ML in 0.9 % Sodium Chloride 8.7 ML IVP PRN (17:40)
[2020-08-01] MEDS ORDERED: 0.9 % Sodium Chloride 250 ML ONE (18:40)
[2020-08-01 19:05] LABS: Influenza A PCR Negative (Negative); Influenza B PCR Negative (Negative); Resp. Syncytial Virus PCR Negative (Negative)
[2020-08-01 19:35] LABS: SARS-CoV-2 by PCR (In House) Negative (Negative)
[2020-08-01] MEDS ORDERED: Furosemide 20 MG/2 ML VIAL IVP ONE (22:00)
[2020-08-02] MEDS ORDERED: Ipratropium/Albuterol Neb 3 ML IH ONE (00:32)
[2020-08-02] MEDS ORDERED: Furosemide 20 MG/2 ML VIAL IVP ONE (02:00)
[2020-08-02] MEDS: Ipratropium/Albuterol Neb 3 ML IH SCH ×6 (04:08→23:44)
[2020-08-02 04:19] LABS: Basophils % 0.5 %; Immature Granulocytes % 0.5 % (0-4); Nucleated Red Blood Cells 0.3 /100 WBC (0)
[2020-08-02 04:20] LABS: Basophils # 0.1 K/mcL (0.0-0.2); Eosinophils # 0.2 K/mcL (0.0-0.6); Eosinophils % 1.1 %; Hematocrit 28.4 % (37.5-50.1); Hemoglobin 8.2 g/dL (12.9-16.9); Lymphocytes # 2.2 K/mcL (0.6-4.6); Lymphocytes % 15.8 %; Mean Corpuscular HGB Conc 28.9 g/dL (31.6-35.5); Mean Corpuscular Hemoglobin 22.5 pg (28.0-33.3); Mean Platelet Volume 9.6 fL (9.4-12.4); Monocytes # 1.3 K/mcL (0.0-1.3); Neutrophils # 10.2 K/mcL (1.6-8.9); Platelet Count 410 K/mcL (140-400); Red Blood Count 3.64 M/mcL (4.19-5.50); Red Cell Distribution Width 17.8 % (11.5-14.5); Segmented Neutrophils % 73.1 %; White Blood Count 13.9 K/mcL (4.3-11.1)
[2020-08-02 04:33] LABS: Alanine Aminotransferase 12 Units/L (7-52); Albumin 3.6 g/dL (3.5-5.7); Albumin/Globulin Ratio 1.2 (1.1-2.2); Alkaline Phosphatase 49 Units/L (34-104); Aspartate Amino Transferase 11 Units/L (13-39); BUN/Creatinine Ratio 14 (6-26); Bilirubin,Total 0.5 mg/dL (0.3-1.0); Blood Urea Nitrogen 14 mg/dL (8-23); Calcium 8.1 mg/dL (8.6-10.3); Carbon Dioxide 24 mEq/L (23-29); Chloride 107 mEq/L (98-107); Glucose 102 mg/dL (70-105); Osmolality,Calculated 289 (280-300); Potassium 4.2 mEq/L (3.5-5.1); Sodium 139 mEq/L (136-145); Total Protein 6.6 g/dL (6.4-8.9); eGFR For African Americans > 60 (> 60); eGFR For Non-African Americans > 60 (> 60)
[2020-08-02 05:18] LABS: Anisocytosis 1+ (Not Present); Hypochromasia Present (Not Present); Ovalocytes 1+ (Not Present); Poikilocytosis 1+ (Not Present)
[2020-08-02 06:10] LABS: Hematocrit 30.7 % (37.5-50.1)
[2020-08-02] MEDS: Pantoprazole 40 MG VIAL IVP SCH ×2 (06:29→17:07)
[2020-08-02] MEDS ORDERED: *HR* Propofol 200 MG/20 ML VIAL IVP ONE (11:30)
[2020-08-02] MEDS ORDERED: Lidocaine -MPF 2% 5 ML VIAL SQ ONE (11:30)
[2020-08-02 11:49] LABS: Hemoglobin 8.3 g/dL (12.9-16.9)
[2020-08-02 14:52] LABS: Hematocrit 31.4 % (37.5-50.1)
[2020-08-02] MEDS ORDERED: D5% in Water 1,000 ML IVC PRN (16:14)
[2020-08-02] MEDS ORDERED: Dextrose Gel 15 GM/37.5 ML TUBE PO PRN ×2 (16:14)
[2020-08-02] MEDS ORDERED: *HR* Dextrose 50 % in Water (Vial) 50 ML VIAL IVP PRN (16:14)
[2020-08-02] MEDS ORDERED: Budesonide Neb 0.5 MG/2 ML IH PRN (16:15)
[2020-08-02] MEDS: Furosemide 40 MG TABLET PO SCH (17:07)
[2020-08-02] MEDS: lisinopriL 20 MG TABLET PO SCH (17:07)
[2020-08-02] MEDS: Insulin LISPRO 300 UNITS/3 ML VIAL SUBQ SCH (17:07)
[2020-08-02 18:24] LABS: Hematocrit 29.4 % (37.5-50.1); Hemoglobin 8.6 g/dL (12.9-16.9)
[2020-08-02] MEDS: Apixaban 5 MG TABLET PO SCH (20:18)
[2020-08-02] MEDS: carvediloL 6.25 MG TABLET PO SCH (20:18)
[2020-08-02 22:45] LABS: Hematocrit 27.6 % (37.5-50.1); Hemoglobin 7.9 g/dL (12.9-16.9)
[2020-08-03 01:00] LABS: Basophils % 0.2 %; Eosinophils # 0.1 K/mcL (0.0-0.6); Eosinophils % 0.6 %; Hematocrit 27.5 % (37.5-50.1); Hemoglobin 8.1 g/dL (12.9-16.9); Immature Granulocytes % 0.4 % (0-4); Lymphocytes # 1.9 K/mcL (0.6-4.6); Lymphocytes % 10.4 %; Mean Corpuscular HGB Conc 29.5 g/dL (31.6-35.5); Mean Corpuscular Hemoglobin 22.3 pg (28.0-33.3); Mean Corpuscular Volume 75.5 fL (83.0-100.0); Mean Platelet Volume 11.1 fL (9.4-12.4); Monocytes # 1.6 K/mcL (0.0-1.3); Monocytes % 8.9 %; Neutrophils # 14.5 K/mcL (1.6-8.9); Nucleated Red Blood Cells 0.3 /100 WBC (0); Platelet Count 371 K/mcL (140-400); Red Blood Count 3.64 M/mcL (4.19-5.50); Red Cell Distribution Width 18.5 % (11.5-14.5); Segmented Neutrophils % 79.5 %; White Blood Count 18.3 K/mcL (4.3-11.1)
[2020-08-03 01:23] LABS: BUN/Creatinine Ratio 15 (6-26); Blood Urea Nitrogen 18 mg/dL (8-23); Calcium 8.1 mg/dL (8.6-10.3); Carbon Dioxide 24 mEq/L (23-29); Chloride 104 mEq/L (98-107); Glucose 123 mg/dL (70-105); Osmolality,Calculated 285 (280-300); Potassium 4.1 mEq/L (3.5-5.1); Sodium 136 mEq/L (136-145); eGFR For African Americans > 60 (> 60); eGFR For Non-African Americans > 60 (> 60)
[2020-08-03] MEDS: Ipratropium/Albuterol Neb 3 ML IH SCH ×6 (03:45→23:50)
[2020-08-03] MEDS: Pantoprazole 40 MG VIAL IVP SCH ×2 (05:10→17:19)
[2020-08-03] MEDS: Insulin LISPRO 300 UNITS/3 ML VIAL SUBQ SCH ×3 (08:30→16:05)
[2020-08-03] MEDS: Apixaban 5 MG TABLET PO SCH ×2 (08:32→20:06)
[2020-08-03] MEDS: carvediloL 6.25 MG TABLET PO SCH ×2 (08:32→20:06)
[2020-08-03] MEDS: Furosemide 40 MG TABLET PO SCH ×2 (08:32→17:19)
[2020-08-03] MEDS: lisinopriL 20 MG TABLET PO SCH (08:32)
[2020-08-03] MEDS ORDERED: SODIUM CHLORIDE/NAHCO3/KCL/PEG 4,000 ML SOLN.RECON PO ONE (12:34)
[2020-08-03] MEDS: Fluconazole 400 MG/200 ML 400 MG/200 ML BAG IVPB SCH (13:01)
[2020-08-03] MEDS: predniSONE 20 MG TABLET PO SCH (13:01)
[2020-08-03] MEDS: Benzonatate 100 MG CAPSULE PO PRN (15:56)
[2020-08-04] MEDS: Benzonatate 100 MG CAPSULE PO PRN ×3 (01:35→16:38)
[2020-08-04] MEDS: Ipratropium/Albuterol Neb 3 ML IH SCH ×6 (03:45→23:17)
[2020-08-04 04:29] LABS: Basophils % 0.1 %; Nucleated Red Blood Cells 0.1 /100 WBC (0)
[2020-08-04 04:30] LABS: Hematocrit 26.7 % (37.5-50.1); Hemoglobin 7.5 g/dL (12.9-16.9); Immature Granulocytes % 0.4 % (0-4); Lymphocytes # 0.5 K/mcL (0.6-4.6); Lymphocytes % 3.6 %; Mean Corpuscular HGB Conc 28.1 g/dL (31.6-35.5); Mean Corpuscular Hemoglobin 22.2 pg (28.0-33.3); Mean Platelet Volume 10.6 fL (9.4-12.4); Monocytes # 0.4 K/mcL (0.0-1.3); Neutrophils # 12.5 K/mcL (1.6-8.9); Platelet Count 384 K/mcL (140-400); Red Blood Count 3.38 M/mcL (4.19-5.50); Red Cell Distribution Width 18.7 % (11.5-14.5); Segmented Neutrophils % 92.9 %; White Blood Count 13.5 K/mcL (4.3-11.1)
[2020-08-04] MEDS: Pantoprazole 40 MG VIAL IVP SCH ×2 (05:03→16:39)
[2020-08-04 05:15] LABS: Anisocytosis 1+ (Not Present); Hypochromasia Present (Not Present); Platelet Estimate Normal (Normal); Poikilocytosis 1+ (Not Present)
[2020-08-04 06:44] LABS: BUN/Creatinine Ratio 19 (6-26); Blood Urea Nitrogen 23 mg/dL (8-23); Calcium 8.6 mg/dL (8.6-10.3); Carbon Dioxide 24 mEq/L (23-29); Chloride 105 mEq/L (98-107); Glucose 152 mg/dL (70-105); Osmolality,Calculated 289 (280-300); Potassium 4.4 mEq/L (3.5-5.1); Sodium 136 mEq/L (136-145); eGFR For African Americans > 60 (> 60); eGFR For Non-African Americans 60 (> 60)
[2020-08-04] MEDS: lisinopriL 20 MG TABLET PO SCH (07:35)
[2020-08-04] MEDS: predniSONE 20 MG TABLET PO SCH (07:35)
[2020-08-04] MEDS: Fluconazole 400 MG/200 ML 400 MG/200 ML BAG IVPB SCH (07:35)
[2020-08-04] MEDS: carvediloL 6.25 MG TABLET PO SCH ×2 (07:36→20:13)
[2020-08-04] MEDS: Furosemide 40 MG TABLET PO SCH ×2 (07:36→16:38)
[2020-08-04] MEDS: Apixaban 5 MG TABLET PO SCH (07:36)
[2020-08-04] MEDS: Insulin LISPRO 300 UNITS/3 ML VIAL SUBQ SCH ×3 (07:53→16:40)
[2020-08-04] MEDS ORDERED: SODIUM CHLORIDE/NAHCO3/KCL/PEG 4,000 ML SOLN.RECON PO ONE (16:00)
[2020-08-05] MEDS: Ipratropium/Albuterol Neb 3 ML IH SCH ×6 (03:35→23:11)
[2020-08-05] MEDS: Pantoprazole 40 MG VIAL IVP SCH ×2 (05:06→18:03)
[2020-08-05 05:27] LABS: Basophils % 0.1 %; Mean Platelet Volume 10.2 fL (9.4-12.4)
[2020-08-05 05:28] LABS: Eosinophils % 0.1 %; Hematocrit 25.1 % (37.5-50.1); Hemoglobin 7.3 g/dL (12.9-16.9); Immature Granulocytes % 0.6 % (0-4); Lymphocytes # 1.7 K/mcL (0.6-4.6); Lymphocytes % 11.9 %; Mean Corpuscular HGB Conc 29.1 g/dL (31.6-35.5); Mean Corpuscular Hemoglobin 22.8 pg (28.0-33.3); Mean Corpuscular Volume 78.4 fL (83.0-100.0); Monocytes # 1.1 K/mcL (0.0-1.3); Monocytes % 7.8 %; Neutrophils # 11.3 K/mcL (1.6-8.9); Nucleated Red Blood Cells 0.3 /100 WBC (0); Platelet Count 369 K/mcL (140-400); Red Cell Distribution Width 18.9 % (11.5-14.5); Segmented Neutrophils % 79.5 %; White Blood Count 14.2 K/mcL (4.3-11.1)
[2020-08-05 05:46] LABS: BUN/Creatinine Ratio 17 (6-26); Blood Urea Nitrogen 21 mg/dL (8-23); Calcium 8.1 mg/dL (8.6-10.3); Carbon Dioxide 26 mEq/L (23-29); Chloride 101 mEq/L (98-107); Glucose 122 mg/dL (70-105); Osmolality,Calculated 284 (280-300); Potassium 3.9 mEq/L (3.5-5.1); Sodium 135 mEq/L (136-145); eGFR For African Americans > 60 (> 60); eGFR For Non-African Americans 58 (> 60)
[2020-08-05 05:56] LABS: Anisocytosis 1+ (Not Present); Hypochromasia Present (Not Present); Platelet Estimate Normal (Normal)
[2020-08-05] MEDS: Insulin LISPRO 300 UNITS/3 ML VIAL SUBQ SCH ×3 (07:47→18:17)
[2020-08-05] MEDS: Fluconazole 200 MG/100 ML 200 MG/100 ML BAG IVPB SCH (08:21)
[2020-08-05] MEDS: predniSONE 20 MG TABLET PO SCH (08:21)
[2020-08-05] MEDS: carvediloL 6.25 MG TABLET PO SCH ×2 (08:22→19:41)
[2020-08-05] MEDS: lisinopriL 20 MG TABLET PO SCH (08:22)
[2020-08-05] MEDS: Furosemide 40 MG TABLET PO SCH ×2 (08:22→18:04)
[2020-08-05] MEDS ORDERED: Lidocaine -MPF 2% 2 ML VIAL ONE (12:30)
[2020-08-05 12:39] LABS: Hemoglobin 7.9 g/dL (12.9-16.9)
[2020-08-05] MEDS ORDERED: Simethicone 40 MG/0.6 ML MLS IR ONE (13:47)
[2020-08-05] MEDS ORDERED: Isovue-370 500 ML BOTTLE IVP ONE ×4 (14:09→15:45)
[2020-08-06 01:38] LABS: Basophils % 0.1 %; Hemoglobin 7.6 g/dL (12.9-16.9); Monocytes % 8.8 %
[2020-08-06 01:40] LABS: Hematocrit 26.8 % (37.5-50.1); Immature Granulocytes % 0.5 % (0-4); Lymphocytes # 1.2 K/mcL (0.6-4.6); Mean Corpuscular HGB Conc 28.4 g/dL (31.6-35.5); Mean Corpuscular Volume 77.5 fL (83.0-100.0); Mean Platelet Volume 10.6 fL (9.4-12.4); Monocytes # 0.9 K/mcL (0.0-1.3); Neutrophils # 7.9 K/mcL (1.6-8.9); Nucleated Red Blood Cells 0.6 /100 WBC (0); Platelet Count 388 K/mcL (140-400); Red Blood Count 3.46 M/mcL (4.19-5.50); Red Cell Distribution Width 19.2 % (11.5-14.5); Segmented Neutrophils % 78.6 %
[2020-08-06 01:53] LABS: BUN/Creatinine Ratio 17 (6-26); Blood Urea Nitrogen 19 mg/dL (8-23); Calcium 7.9 mg/dL (8.6-10.3); Carbon Dioxide 24 mEq/L (23-29); Chloride 105 mEq/L (98-107); Glucose 128 mg/dL (70-105); Osmolality,Calculated 288 (280-300); Potassium 4.4 mEq/L (3.5-5.1); Sodium 137 mEq/L (136-145); eGFR For African Americans > 60 (> 60); eGFR For Non-African Americans > 60 (> 60)
[2020-08-06 02:14] LABS: Hypochromasia Present (Not Present)
[2020-08-06 02:19] LABS: Anisocytosis 1+ (Not Present); Poikilocytosis 1+ (Not Present)
[2020-08-06 02:20] LABS: Platelet Estimate Normal (Normal)
[2020-08-06] MEDS: Ipratropium/Albuterol Neb 3 ML IH SCH ×6 (03:46→23:25)
[2020-08-06] MEDS: Pantoprazole 40 MG VIAL IVP SCH ×2 (04:58→17:15)
[2020-08-06] MEDS ORDERED: *HR* FentaNYL (PF) 100 MCG/2 ML VIAL ONE (07:19)
[2020-08-06] MEDS ORDERED: Lidocaine -MPF 2% 2 ML VIAL ONE ×4 (07:19→10:01)
[2020-08-06] MEDS ORDERED: *HR* Succinylcholine 200 MG/10 ML VIAL IVP ONE (07:19)
[2020-08-06] MEDS ORDERED: *HR* Propofol 200 MG/20 ML VIAL IVP ONE (07:19)
[2020-08-06] MEDS ORDERED: *HR* Rocuronium Bromide 50 MG/5 ML VIAL ONE (07:19)
[2020-08-06] MEDS ORDERED: Ondansetron 4 MG/2 ML VIAL ONE (07:19)
[2020-08-06] MEDS ORDERED: Lidocaine -MPF 4% 5 ML AMPUL ONE (07:19)
[2020-08-06] MEDS ORDERED: Dexamethasone 4 MG/ML VIAL ONE (07:19)
[2020-08-06] MEDS: Insulin LISPRO 300 UNITS/3 ML VIAL SUBQ SCH ×2 (07:34→17:12)
[2020-08-06] MEDS: Fluconazole 200 MG/100 ML 200 MG/100 ML BAG IVPB SCH (07:40)
[2020-08-06] MEDS ORDERED: Heparin 1,000 UNITS/500 mL 500 ML ONE (07:42)
[2020-08-06] MEDS: carvediloL 6.25 MG TABLET PO SCH ×2 (07:50→17:14)
[2020-08-06] MEDS: Furosemide 40 MG TABLET PO SCH ×2 (07:50→17:15)
[2020-08-06] MEDS: lisinopriL 20 MG TABLET PO SCH (07:51)
[2020-08-06] MEDS ORDERED: Albumin Human 5% 12.5 GM/250 ML IV.SOLN ONE (09:09)
[2020-08-06] MEDS ORDERED: Ondansetron 4 MG/2 ML VIAL IVP PRN ×3 (09:11→13:26)
[2020-08-06] MEDS ORDERED: *HR* HYDROmorphone (PF) 1 MG/ML SYRINGE IVP PRN ×2 (09:11→13:26)
[2020-08-06] MEDS ORDERED: Ipratropium/Albuterol Neb 3 ML IH PRN (09:11)
[2020-08-06] MEDS ORDERED: *HR* Labetalol 20 MG/4 ML SYRINGE IVP PRN ×2 (09:11→13:26)
[2020-08-06] MEDS ORDERED: CefOXitin 2,000 MG VIAL ONE (09:21)
[2020-08-06] MEDS ORDERED: EPHEDrine 50 MG/ML VIAL ONE (09:24)
[2020-08-06] MEDS ORDERED: *HR* HYDROMORPHONE 2 MG/ML VIAL ONE (10:19)
[2020-08-06] MEDS ORDERED: Furosemide 20 MG/2 ML VIAL IVP ONE (11:17)
[2020-08-06] MEDS ORDERED: Ipratropium/Albuterol Neb 3 ML ONE (11:19)
[2020-08-06] MEDS ORDERED: Budesonide Neb 0.5 MG/2 ML IH PRN (13:26)
[2020-08-06] MEDS ORDERED: Naloxone 0.4 MG/ML INJ IVP PRN (13:26)
[2020-08-06] MEDS ORDERED: Dextrose Gel 15 GM/37.5 ML TUBE PO PRN ×2 (13:26)
[2020-08-06] MEDS ORDERED: D5% in Water 1,000 ML IVC PRN (13:26)
[2020-08-06] MEDS ORDERED: Simethicone 40 MG/0.6 ML MLS IR ONE (13:26)
[2020-08-06] MEDS ORDERED: Isovue-370 500 ML BOTTLE IVP ONE ×3 (13:26)
[2020-08-06] MEDS ORDERED: *HR* Dextrose 50 % in Water (Vial) 50 ML VIAL IVP PRN (13:26)
[2020-08-06] MEDS ORDERED: Acetaminophen IV 1,000 MG/100 ML BAG IVPB ONE (15:59)
[2020-08-07] MEDS: Ipratropium/Albuterol Neb 3 ML IH SCH ×5 (03:40→19:53)
[2020-08-07] MEDS: Insulin LISPRO 300 UNITS/3 ML VIAL SUBQ SCH ×4 (05:04→17:19)
[2020-08-07] MEDS: Pantoprazole 40 MG VIAL IVP SCH ×2 (05:27→17:15)
[2020-08-07 06:19] LABS: Basophils % 0.1 %; Immature Granulocytes % 0.6 % (0-4)
[2020-08-07 06:20] LABS: White Blood Count 16.9 K/mcL (4.3-11.1)
[2020-08-07 06:21] LABS: Hematocrit 25.2 % (37.5-50.1); Hemoglobin 7.2 g/dL (12.9-16.9); Lymphocytes % 4.4 %; Mean Corpuscular HGB Conc 28.6 g/dL (31.6-35.5); Mean Corpuscular Hemoglobin 22.3 pg (28.0-33.3); Mean Platelet Volume 10.2 fL (9.4-12.4); Monocytes # 1.6 K/mcL (0.0-1.3); Monocytes % 9.3 %; Neutrophils # 14.5 K/mcL (1.6-8.9); Nucleated Red Blood Cells 0.2 /100 WBC (0); Platelet Count 353 K/mcL (140-400); Red Blood Count 3.23 M/mcL (4.19-5.50); Red Cell Distribution Width 19.3 % (11.5-14.5); Segmented Neutrophils % 85.6 %
[2020-08-07 06:29] LABS: Lymphocytes # 0.7 K/mcL (0.6-4.6)
[2020-08-07 06:38] LABS: BUN/Creatinine Ratio 16 (6-26); Blood Urea Nitrogen 20 mg/dL (8-23); Calcium 8.1 mg/dL (8.6-10.3); Carbon Dioxide 28 mEq/L (23-29); Chloride 103 mEq/L (98-107); Glucose 161 mg/dL (70-105); Osmolality,Calculated 290 (280-300); Potassium 4.1 mEq/L (3.5-5.1); Sodium 137 mEq/L (136-145); eGFR For African Americans > 60 (> 60); eGFR For Non-African Americans 55 (> 60)
[2020-08-07 06:44] LABS: Anisocytosis 2+ (Not Present); Microcytosis Present (Not Present); Platelet Estimate Normal (Normal)
[2020-08-07] MEDS: Fluconazole 200 MG/100 ML 200 MG/100 ML BAG IVPB SCH (08:49)
[2020-08-07] MEDS: Furosemide 40 MG TABLET PO SCH ×2 (08:50→17:16)
[2020-08-07] MEDS: Benzonatate 100 MG CAPSULE PO PRN ×2 (08:50→14:17)
[2020-08-07] MEDS: carvediloL 6.25 MG TABLET PO SCH ×2 (08:50→17:16)
[2020-08-07] MEDS: lisinopriL 20 MG TABLET PO SCH (08:50)
[2020-08-07] MEDS: Acetaminophen 325 MG TABLET PO PRN ×2 (08:50→19:49)
[2020-08-07] MEDS ORDERED: 0.9 % Sodium Chloride 250 ML ONE (14:13)
[2020-08-07] MEDS: Simethicone 80 MG TAB.CHEW PO PRN (21:20)
[2020-08-08] MEDS: Ipratropium/Albuterol Neb 3 ML IH SCH ×7 (00:04→23:42)
[2020-08-08 01:26] LABS: Basophils % 0.1 %; Eosinophils % 0.1 %; Monocytes % 7.6 %
[2020-08-08 01:28] LABS: Hematocrit 32.7 % (37.5-50.1); Hemoglobin 9.1 g/dL (12.9-16.9); Immature Granulocytes % 0.6 % (0-4); Lymphocytes # 1.1 K/mcL (0.6-4.6); Lymphocytes % 5.9 %; Mean Corpuscular HGB Conc 27.8 g/dL (31.6-35.5); Mean Platelet Volume 10.6 fL (9.4-12.4); Monocytes # 1.5 K/mcL (0.0-1.3); Neutrophils # 16.5 K/mcL (1.6-8.9); Nucleated Red Blood Cells 0.1 /100 WBC (0); Platelet Count 405 K/mcL (140-400); Red Blood Count 4.14 M/mcL (4.19-5.50); Segmented Neutrophils % 85.7 %; White Blood Count 19.2 K/mcL (4.3-11.1)
[2020-08-08 01:47] LABS: BUN/Creatinine Ratio 16 (6-26); Blood Urea Nitrogen 21 mg/dL (8-23); Calcium 8.2 mg/dL (8.6-10.3); Carbon Dioxide 28 mEq/L (23-29); Chloride 102 mEq/L (98-107); Glucose 139 mg/dL (70-105); Magnesium 2.5 mg/dL (1.6-2.6); Osmolality,Calculated 289 (280-300); Phosphorous 3.2 mg/dL (2.7-4.5); Sodium 137 mEq/L (136-145); eGFR For African Americans > 60 (> 60); eGFR For Non-African Americans 53 (> 60)
[2020-08-08 02:17] LABS: Anisocytosis 1+ (Not Present); Platelet Estimate Normal (Normal)
[2020-08-08] MEDS: Pantoprazole 40 MG VIAL IVP SCH ×2 (05:34→08:04)
[2020-08-08] MEDS: Acetaminophen 325 MG TABLET PO PRN ×2 (05:34→16:04)
[2020-08-08] MEDS: Simethicone 80 MG TAB.CHEW PO PRN ×2 (05:35→19:43)
[2020-08-08] MEDS: Insulin LISPRO 300 UNITS/3 ML VIAL SUBQ SCH ×3 (08:05→16:04)
[2020-08-08] MEDS: Fluconazole 200 MG/100 ML 200 MG/100 ML BAG IVPB SCH (08:05)
[2020-08-08] MEDS: carvediloL 6.25 MG TABLET PO SCH ×2 (08:05→15:51)
[2020-08-08] MEDS: lisinopriL 20 MG TABLET PO SCH (08:06)
[2020-08-08] MEDS: Apixaban 5 MG TABLET PO SCH ×2 (11:48→19:43)
[2020-08-09] MEDS: Acetaminophen 325 MG TABLET PO PRN ×3 (01:03→20:57)
[2020-08-09] MEDS: Ipratropium/Albuterol Neb 3 ML IH SCH ×6 (03:45→23:00)
[2020-08-09 05:21] LABS: Immature Granulocytes % 0.5 % (0-4); Mean Platelet Volume 10.6 fL (9.4-12.4)
[2020-08-09 05:22] LABS: Basophils % 0.1 %; Eosinophils # 0.1 K/mcL (0.0-0.6); Eosinophils % 0.6 %; Hematocrit 31.2 % (37.5-50.1); Lymphocytes # 0.8 K/mcL (0.6-4.6); Lymphocytes % 4.7 %; Mean Corpuscular HGB Conc 28.8 g/dL (31.6-35.5); Mean Corpuscular Hemoglobin 22.7 pg (28.0-33.3); Mean Corpuscular Volume 78.8 fL (83.0-100.0); Monocytes % 6.1 %; Neutrophils # 14.7 K/mcL (1.6-8.9); Nucleated Red Blood Cells 0.2 /100 WBC (0); Platelet Count 387 K/mcL (140-400); Red Blood Count 3.96 M/mcL (4.19-5.50); Red Cell Distribution Width 19.4 % (11.5-14.5); White Blood Count 16.7 K/mcL (4.3-11.1)
[2020-08-09 05:40] LABS: BUN/Creatinine Ratio 18 (6-26); Blood Urea Nitrogen 21 mg/dL (8-23); Calcium 8.5 mg/dL (8.6-10.3); Carbon Dioxide 28 mEq/L (23-29); Chloride 101 mEq/L (98-107); Glucose 129 mg/dL (70-105); Magnesium 2.6 mg/dL (1.6-2.6); Osmolality,Calculated 285 (280-300); Phosphorous 3.5 mg/dL (2.7-4.5); Potassium 4.4 mEq/L (3.5-5.1); Sodium 135 mEq/L (136-145); eGFR For African Americans > 60 (> 60); eGFR For Non-African Americans 60 (> 60)
[2020-08-09 06:14] LABS: Anisocytosis 1+ (Not Present); Hypochromasia Present (Not Present); Microcytosis Present (Not Present); Platelet Estimate Normal (Normal)
[2020-08-09] MEDS: carvediloL 6.25 MG TABLET PO SCH ×2 (07:48→16:55)
[2020-08-09] MEDS: lisinopriL 20 MG TABLET PO SCH (07:48)
[2020-08-09] MEDS: Apixaban 5 MG TABLET PO SCH ×2 (07:48→20:57)
[2020-08-09] MEDS: Fluconazole 200 MG/100 ML 200 MG/100 ML BAG IVPB SCH (07:48)
[2020-08-09] MEDS: Pantoprazole 40 MG VIAL IVP SCH (07:49)
[2020-08-09] MEDS: Insulin LISPRO 300 UNITS/3 ML VIAL SUBQ SCH ×3 (07:49→16:17)
[2020-08-09] MEDS ORDERED: polyethylene glycoL 3350 17 GM POWD.PACK PO PRN (08:37)
[2020-08-09] MEDS ORDERED: Saline Nasal Spray 44 ML BOTTLE NS PRN (09:06)
[2020-08-09] MEDS: Benzonatate 100 MG CAPSULE PO PRN ×2 (09:33→20:57)
[2020-08-09] MEDS: Saline Nasal Spray 44 ML BOTTLE NS SCH ×3 (16:55→20:58)
[2020-08-09] MEDS: Furosemide 40 MG TABLET PO SCH (16:55)
[2020-08-10] MEDS: Melatonin 3 MG TABLET PO PRN ×2 (01:19→20:57)
[2020-08-10] MEDS: Ipratropium/Albuterol Neb 3 ML IH SCH ×6 (03:02→23:38)
[2020-08-10 03:53] LABS: Mean Platelet Volume 10.5 fL (9.4-12.4); Red Cell Distribution Width 19.5 % (11.5-14.5)
[2020-08-10 03:55] LABS: Basophils % 0.2 %; Eosinophils # 0.2 K/mcL (0.0-0.6); Eosinophils % 1.5 %; Hematocrit 30.3 % (37.5-50.1); Hemoglobin 8.8 g/dL (12.9-16.9); Immature Granulocytes % 0.3 % (0-4); Lymphocytes # 0.8 K/mcL (0.6-4.6); Lymphocytes % 6.6 %; Mean Corpuscular Hemoglobin 22.3 pg (28.0-33.3); Mean Corpuscular Volume 76.9 fL (83.0-100.0); Nucleated Red Blood Cells 0.2 /100 WBC (0); Platelet Count 426 K/mcL (140-400); Red Blood Count 3.94 M/mcL (4.19-5.50); Segmented Neutrophils % 83.4 %
[2020-08-10 04:14] LABS: BUN/Creatinine Ratio 16 (6-26); Blood Urea Nitrogen 16 mg/dL (8-23); Calcium 8.3 mg/dL (8.6-10.3); Carbon Dioxide 28 mEq/L (23-29); Chloride 99 mEq/L (98-107); Glucose 127 mg/dL (70-105); Magnesium 2.3 mg/dL (1.6-2.6); Osmolality,Calculated 283 (280-300); Phosphorous 2.9 mg/dL (2.7-4.5); Sodium 135 mEq/L (136-145); eGFR For African Americans > 60 (> 60); eGFR For Non-African Americans > 60 (> 60)
[2020-08-10 05:17] LABS: Hypochromasia Present (Not Present); Platelet Estimate Normal (Normal)
[2020-08-10 05:18] LABS: Anisocytosis 1+ (Not Present); Poikilocytosis 1+ (Not Present)
[2020-08-10] MEDS: Insulin LISPRO 300 UNITS/3 ML VIAL SUBQ SCH ×3 (08:35→16:34)
[2020-08-10] MEDS: Apixaban 5 MG TABLET PO SCH ×2 (08:44→20:51)
[2020-08-10] MEDS: carvediloL 6.25 MG TABLET PO SCH ×2 (08:44→16:35)
[2020-08-10] MEDS: Furosemide 40 MG TABLET PO SCH (08:44)
[2020-08-10] MEDS: Saline Nasal Spray 44 ML BOTTLE NS SCH ×4 (08:47→20:53)
[2020-08-10] MEDS: Fluconazole 100 MG TABLET PO SCH (08:47)
[2020-08-10] MEDS: Pantoprazole 40 MG VIAL IVP SCH (08:48)
[2020-08-10] MEDS ORDERED: Furosemide 80 MG in 0.9 % Sodium Chloride 50 ML IVPB SCH (13:00)
[2020-08-10] MEDS: Furosemide 40 MG/4 ML VIAL IVP SCH (20:38)
[2020-08-10] MEDS: Acetaminophen 325 MG TABLET PO PRN (20:38)
[2020-08-10] MEDS: Benzonatate 100 MG CAPSULE PO PRN (20:51)
[2020-08-11 02:13] LABS: Eosinophils % 1.6 %; Hematocrit 29.6 % (37.5-50.1); Nucleated Red Blood Cells 0.2 /100 WBC (0)
[2020-08-11 02:15] LABS: Basophils % 0.1 %; Eosinophils # 0.2 K/mcL (0.0-0.6); Hemoglobin 8.5 g/dL (12.9-16.9); Immature Granulocytes % 0.4 % (0-4); Lymphocytes # 1.3 K/mcL (0.6-4.6); Lymphocytes % 10.9 %; Mean Corpuscular HGB Conc 28.7 g/dL (31.6-35.5); Mean Corpuscular Hemoglobin 21.9 pg (28.0-33.3); Mean Corpuscular Volume 76.1 fL (83.0-100.0); Mean Platelet Volume 10.2 fL (9.4-12.4); Monocytes # 1.1 K/mcL (0.0-1.3); Monocytes % 9.1 %; Platelet Count 408 K/mcL (140-400); Red Blood Count 3.89 M/mcL (4.19-5.50); Red Cell Distribution Width 19.9 % (11.5-14.5); Segmented Neutrophils % 77.9 %; White Blood Count 11.5 K/mcL (4.3-11.1)
[2020-08-11 02:28] LABS: BUN/Creatinine Ratio 16 (6-26); Blood Urea Nitrogen 15 mg/dL (8-23); Calcium 7.9 mg/dL (8.6-10.3); Carbon Dioxide 30 mEq/L (23-29); Chloride 99 mEq/L (98-107); Glucose 115 mg/dL (70-105); Magnesium 2.1 mg/dL (1.6-2.6); Osmolality,Calculated 288 (280-300); Phosphorous 2.9 mg/dL (2.7-4.5); Potassium 3.6 mEq/L (3.5-5.1); Sodium 138 mEq/L (136-145); eGFR For African Americans > 60 (> 60); eGFR For Non-African Americans > 60 (> 60)
[2020-08-11 02:37] LABS: Anisocytosis 1+ (Not Present); Hypochromasia Present (Not Present)
[2020-08-11 02:38] LABS: Platelet Estimate Normal (Normal)
[2020-08-11] MEDS: Ipratropium/Albuterol Neb 3 ML IH SCH ×5 (03:29→20:30)
[2020-08-11] MEDS: Acetaminophen 325 MG TABLET PO PRN (05:38)
[2020-08-11] MEDS: Insulin LISPRO 300 UNITS/3 ML VIAL SUBQ SCH ×3 (07:33→17:12)
[2020-08-11] MEDS: Apixaban 5 MG TABLET PO SCH ×2 (08:00→20:22)
[2020-08-11] MEDS: Fluconazole 100 MG TABLET PO SCH (08:00)
[2020-08-11] MEDS: carvediloL 6.25 MG TABLET PO SCH ×2 (08:01→17:16)
[2020-08-11] MEDS: Saline Nasal Spray 44 ML BOTTLE NS SCH ×4 (08:01→20:22)
[2020-08-11] MEDS: Pantoprazole 40 MG VIAL IVP SCH (08:01)
[2020-08-11] MEDS: Furosemide 40 MG/4 ML VIAL IVP SCH ×2 (08:01→20:22)
[2020-08-12] MEDS: Ipratropium/Albuterol Neb 3 ML IH SCH ×5 (00:01→15:13)
[2020-08-12 04:49] LABS: Basophils % 0.4 %; Eosinophils # 0.2 K/mcL (0.0-0.6); Eosinophils % 1.5 %; Hematocrit 30.6 % (37.5-50.1); Hemoglobin 8.8 g/dL (12.9-16.9); Immature Granulocytes % 0.6 % (0-4); Lymphocytes # 1.4 K/mcL (0.6-4.6); Lymphocytes % 13.5 %; Mean Corpuscular HGB Conc 28.8 g/dL (31.6-35.5); Mean Corpuscular Volume 76.5 fL (83.0-100.0); Mean Platelet Volume 10.6 fL (9.4-12.4); Monocytes # 1.1 K/mcL (0.0-1.3); Monocytes % 10.6 %; Neutrophils # 7.8 K/mcL (1.6-8.9); Platelet Count 385 K/mcL (140-400); Segmented Neutrophils % 73.4 %; White Blood Count 10.6 K/mcL (4.3-11.1)
[2020-08-12 05:05] LABS: BUN/Creatinine Ratio 14 (6-26); Blood Urea Nitrogen 14 mg/dL (8-23); Calcium 8.2 mg/dL (8.6-10.3); Carbon Dioxide 29 mEq/L (23-29); Chloride 100 mEq/L (98-107); Glucose 118 mg/dL (70-105); Magnesium 2.2 mg/dL (1.6-2.6); Osmolality,Calculated 286 (280-300); Phosphorous 3.3 mg/dL (2.7-4.5); Potassium 3.6 mEq/L (3.5-5.1); Sodium 137 mEq/L (136-145); eGFR For African Americans > 60 (> 60); eGFR For Non-African Americans > 60 (> 60)
[2020-08-12 05:36] LABS: Anisocytosis 1+ (Not Present); Hypochromasia Present (Not Present); Poikilocytosis 1+ (Not Present)
[2020-08-12 05:37] LABS: Platelet Estimate Normal (Normal)
[2020-08-12] MEDS: Insulin LISPRO 300 UNITS/3 ML VIAL SUBQ SCH ×2 (08:59→11:57)
[2020-08-12] MEDS: Furosemide 40 MG/4 ML VIAL IVP SCH (09:00)
[2020-08-12] MEDS: Saline Nasal Spray 44 ML BOTTLE NS SCH ×2 (09:01→11:57)
[2020-08-12] MEDS: Apixaban 5 MG TABLET PO SCH (09:01)
[2020-08-12] MEDS: Fluconazole 100 MG TABLET PO SCH (09:01)
[2020-08-12] MEDS: Pantoprazole 40 MG VIAL IVP SCH (09:01)
[2020-08-12] MEDS: carvediloL 6.25 MG TABLET PO SCH (09:01)
[2020-08-12 16:40] VITALS: BP 101/56
== END 2020-08-12 18:34 | disposition home or self-care (01) | DRG 329 ==
LOC: 3BNU 12:44 → EMEROOARM 12:44 → SUATTDRO 16:37 → 2NNU 17:50 → 2ANU 08-03 21:58
PROVIDERS: ADMIT Internal Medicine; ATTEND Internal Medicine
PROC: ENDOEBX (2020-08-02 10:00)
PROC: ENDOCBX (2020-08-05 14:25)

== ENCOUNTER 2020-08-14 15:11 | Inpatient (IN) ==
[2020-08-14] MEDS ORDERED: Ondansetron 4 MG/2 ML VIAL IVP ONE (15:33)
[2020-08-14] MEDS ORDERED: 0.9 % Sodium Chloride 1,000 ML IVC ONE ×2 (15:33→16:48)
[2020-08-14] MEDS ORDERED: Isovue-370 500 ML BOTTLE IVP ONE (15:33)
[2020-08-14] MEDS ORDERED: *HR* HYDROmorphone (PF) 1 MG/ML SYRINGE IVP ONE (15:42)
[2020-08-14 15:54] LABS: Lymphocytes % 6.1 %; Red Cell Distribution Width 21.2 % (11.5-14.5)
[2020-08-14 15:55] LABS: Basophils % 0.1 %; Eosinophils % 0.1 %; Hematocrit 36.6 % (37.5-50.1); Hemoglobin 10.3 g/dL (12.9-16.9); Immature Granulocytes % 0.6 % (0-4); Lymphocytes # 0.8 K/mcL (0.6-4.6); Mean Corpuscular HGB Conc 28.1 g/dL (31.6-35.5); Mean Corpuscular Hemoglobin 21.3 pg (28.0-33.3); Mean Corpuscular Volume 75.8 fL (83.0-100.0); Mean Platelet Volume 10.7 fL (9.4-12.4); Monocytes % 7.2 %; Neutrophils # 11.8 K/mcL (1.6-8.9); Platelet Count 633 K/mcL (140-400); Red Blood Count 4.83 M/mcL (4.19-5.50); Segmented Neutrophils % 85.9 %; White Blood Count 13.7 K/mcL (4.3-11.1)
[2020-08-14 16:05] LABS: Hypochromasia Present (Not Present)
[2020-08-14 16:10] LABS: Calcium 9.2 mg/dL (8.6-10.3); Potassium 4.5 mEq/L (3.5-5.1)
[2020-08-14] MEDS ORDERED: Naloxone 0.4 MG/ML INJ IVP PRN (17:27)
[2020-08-14] MEDS ORDERED: D5% in Water 1,000 ML IVC PRN (17:54)
[2020-08-14] MEDS ORDERED: Dextrose Gel 15 GM/37.5 ML TUBE PO PRN ×2 (17:54)
[2020-08-14] MEDS ORDERED: ceFAZolin 1,000 MG in Water for inj. (sterile) 10 ML IVP ONE (18:41)
[2020-08-14] MEDS: Ringers Solution, Lactated 1,000 ML IVC SCH (18:55)
[2020-08-14] MEDS: Insulin LISPRO 300 UNITS/3 ML VIAL SUBQ SCH (19:02)
[2020-08-14] MEDS: ceFAZolin 1,000 MG in Water for inj. (sterile) 10 ML IVP SCH (20:14)
[2020-08-14] MEDS: carvediloL 25 MG TABLET PO SCH (20:27)
[2020-08-14 20:57] LABS: Sodium, Urine 20.1 mEq/L
[2020-08-14 20:58] LABS: Bilirubin,Urine Small (Negative); Blood,Urine Negative (Negative); Clarity,Urine Clear (Clear); Color,Urine Yellow (Yellow); Glucose,Urine (UA) Normal (Normal); Hyaline Casts,Urine Few per lpf (None Seen); Ketones,Urine Negative (Negative); Leukocyte Esterase,Urine Negative (Negative); Mucus,Urine Few per lpf (None-Few); Nitrite,Urine Negative (Negative); PH,Urine 5.5 pH Units (5.0-8.0); Protein,Urine 30 mg/dL (Neg-Trace); Specific Gravity,Urine > 1.030 (1.010-1.025)
[2020-08-14] MEDS: *HR* Heparin 5,000 UNIT/ML VIAL SQ SCH (22:17)
[2020-08-15] MEDS: Insulin LISPRO 300 UNITS/3 ML VIAL SUBQ SCH ×4 (00:14→17:11)
[2020-08-15 01:57] LABS: Hematocrit 29.7 % (37.5-50.1); Hemoglobin 8.4 g/dL (12.9-16.9); Mean Corpuscular HGB Conc 28.3 g/dL (31.6-35.5); Mean Corpuscular Hemoglobin 21.6 pg (28.0-33.3); Mean Corpuscular Volume 76.3 fL (83.0-100.0); Mean Platelet Volume 10.9 fL (9.4-12.4); Platelet Count 527 K/mcL (140-400); Red Blood Count 3.89 M/mcL (4.19-5.50); Red Cell Distribution Width 21.2 % (11.5-14.5); White Blood Count 11.3 K/mcL (4.3-11.1)
[2020-08-15 02:16] LABS: Calcium 7.9 mg/dL (8.6-10.3); Magnesium 2.4 mg/dL (1.6-2.6); Potassium 3.9 mEq/L (3.5-5.1)
[2020-08-15] MEDS: Ringers Solution, Lactated 1,000 ML IVC SCH ×4 (03:04→22:21)
[2020-08-15] MEDS: *HR* Heparin 5,000 UNIT/ML VIAL SQ SCH ×3 (05:09→21:02)
[2020-08-15] MEDS: ceFAZolin 1,000 MG in Water for inj. (sterile) 10 ML IVP SCH ×2 (05:10→14:12)
[2020-08-15] MEDS ORDERED: Ringers Solution, Lactated 1,000 ML IVC ONE (07:52)
[2020-08-15] MEDS: carvediloL 25 MG TABLET PO SCH ×2 (10:16→17:11)
[2020-08-15] MEDS: Ondansetron 4 MG/2 ML VIAL IVP PRN (10:27)
[2020-08-15] MEDS: *HR* Dextrose 50 % in Water (Vial) 50 ML VIAL IVP PRN (23:47)
[2020-08-16] MEDS: Insulin LISPRO 300 UNITS/3 ML VIAL SUBQ SCH ×4 (00:08→18:53)
[2020-08-16 00:49] LABS: Hemoglobin 8.1 g/dL (12.9-16.9); Mean Platelet Volume 10.5 fL (9.4-12.4)
[2020-08-16 00:50] LABS: Hematocrit 28.2 % (37.5-50.1); Mean Corpuscular HGB Conc 28.7 g/dL (31.6-35.5); Mean Corpuscular Hemoglobin 21.8 pg (28.0-33.3); Platelet Count 573 K/mcL (140-400); Red Blood Count 3.71 M/mcL (4.19-5.50); White Blood Count 10.9 K/mcL (4.3-11.1)
[2020-08-16 01:06] LABS: Calcium 8.4 mg/dL (8.6-10.3); Magnesium 2.6 mg/dL (1.6-2.6); Potassium 3.7 mEq/L (3.5-5.1)
[2020-08-16] MEDS: ceFAZolin 1,000 MG in Water for inj. (sterile) 10 ML IVP SCH ×2 (01:16→16:57)
[2020-08-16] MEDS: Ringers Solution, Lactated 1,000 ML IVC SCH ×2 (03:33→09:57)
[2020-08-16] MEDS: *HR* Dextrose 50 % in Water (Vial) 50 ML VIAL IVP PRN (04:07)
[2020-08-16] MEDS: *HR* Heparin 5,000 UNIT/ML VIAL SQ SCH ×3 (05:16→21:38)
[2020-08-16] MEDS: carvediloL 25 MG TABLET PO SCH ×2 (09:34→16:58)
[2020-08-16 15:30] LABS: BUN/Creatinine Ratio 28 (6-26); Blood Urea Nitrogen 31 mg/dL (8-23); Carbon Dioxide 32 mEq/L (23-29); Chloride 105 mEq/L (98-107); Glucose 113 mg/dL (70-105); Potassium 3.9 mEq/L (3.5-5.1); Sodium 142 mEq/L (136-145); eGFR For African Americans > 60 (> 60); eGFR For Non-African Americans > 60 (> 60)
[2020-08-16 15:31] LABS: Calcium 8.4 mg/dL (8.6-10.3); Osmolality,Calculated 301 (280-300)
[2020-08-17] MEDS: ceFAZolin 1,000 MG in Water for inj. (sterile) 10 ML IVP SCH ×2 (01:43→14:37)
[2020-08-17] MEDS: *HR* Heparin 5,000 UNIT/ML VIAL SQ SCH ×2 (05:30→14:44)
[2020-08-17 05:57] LABS: Hemoglobin 7.7 g/dL (12.9-16.9); Mean Corpuscular Hemoglobin 21.8 pg (28.0-33.3); Mean Corpuscular Volume 78.2 fL (83.0-100.0)
[2020-08-17 05:58] LABS: Hematocrit 27.7 % (37.5-50.1); Mean Corpuscular HGB Conc 27.8 g/dL (31.6-35.5); Mean Platelet Volume 10.9 fL (9.4-12.4); Platelet Count 553 K/mcL (140-400); Red Blood Count 3.54 M/mcL (4.19-5.50); Red Cell Distribution Width 20.7 % (11.5-14.5); White Blood Count 10.6 K/mcL (4.3-11.1)
[2020-08-17 06:15] LABS: BUN/Creatinine Ratio 23 (6-26); Blood Urea Nitrogen 23 mg/dL (8-23); Calcium 8.1 mg/dL (8.6-10.3); Carbon Dioxide 32 mEq/L (23-29); Chloride 103 mEq/L (98-107); Glucose 102 mg/dL (70-105); Osmolality,Calculated 294 (280-300); Potassium 3.6 mEq/L (3.5-5.1); Sodium 140 mEq/L (136-145); eGFR For African Americans > 60 (> 60); eGFR For Non-African Americans > 60 (> 60)
[2020-08-17] MEDS: Insulin LISPRO 300 UNITS/3 ML VIAL SUBQ SCH ×3 (07:57→18:14)
[2020-08-17] MEDS: carvediloL 25 MG TABLET PO SCH (08:06)
[2020-08-17 14:00] VITALS: BP 139/60
[2020-08-17] MEDS: Ondansetron 4 MG/2 ML VIAL IVP PRN (14:59)
[2020-08-17] MEDS ORDERED: Insulin LISPRO 300 UNITS/3 ML VIAL SUBQ SCH (21:00)
== END 2020-08-17 18:12 | disposition home or self-care (01) | DRG 389 ==
LOC: EMEROOARM 15:11 → 3ANU 15:11 → SUATTDRO 17:27 → 3ANU 18:32
PROVIDERS: ADMIT Internal Medicine; ATTEND Internal Medicine

== ENCOUNTER 2020-09-16 15:58 | Inpatient (IN) ==
[2020-09-16 16:29] LABS: Mean Corpuscular HGB Conc 27.4 g/dL (31.6-35.5); Segmented Neutrophils % 77.6 %
[2020-09-16 16:30] LABS: Basophils # 0.1 K/mcL (0.0-0.2); Basophils % 0.6 %; Eosinophils # 0.3 K/mcL (0.0-0.6); Eosinophils % 2.5 %; Hematocrit 31.4 % (37.5-50.1); Hemoglobin 8.6 g/dL (12.9-16.9); Immature Granulocytes % 0.4 % (0-4); Lymphocytes # 1.3 K/mcL (0.6-4.6); Lymphocytes % 11.3 %; Mean Corpuscular Hemoglobin 22.4 pg (28.0-33.3); Mean Corpuscular Volume 81.8 fL (83.0-100.0); Mean Platelet Volume 10.1 fL (9.4-12.4); Monocytes # 0.9 K/mcL (0.0-1.3); Monocytes % 7.6 %; Neutrophils # 8.8 K/mcL (1.6-8.9); Platelet Count 379 K/mcL (140-400); Red Blood Count 3.84 M/mcL (4.19-5.50); Red Cell Distribution Width 22.9 % (11.5-14.5); White Blood Count 11.3 K/mcL (4.3-11.1)
[2020-09-16 16:42] LABS: BUN/Creatinine Ratio 19 (6-26); Blood Urea Nitrogen 18 mg/dL (8-23); Carbon Dioxide 27 mEq/L (23-29); Chloride 105 mEq/L (98-107); Glucose 100 mg/dL (70-105); Osmolality,Calculated 292 (280-300); Potassium 3.9 mEq/L (3.5-5.1); Sodium 140 mEq/L (136-145); Troponin I < 0.03 ng/mL (< 0.04); eGFR For African Americans > 60 (> 60); eGFR For Non-African Americans > 60 (> 60)
[2020-09-16] MEDS ORDERED: Furosemide 40 MG/4 ML VIAL IVP ONE (16:53)
[2020-09-16 16:54] LABS: Platelet Estimate Normal (Normal); Polychromasia 1+ (Not Present)
[2020-09-16] MEDS ORDERED: Isovue-370 500 ML BOTTLE IVP ONE (17:14)
[2020-09-16] MEDS ORDERED: *HR* Dextrose 50 % in Water (Vial) 50 ML VIAL IVP PRN (21:05)
[2020-09-16] MEDS ORDERED: D5% in Water 1,000 ML IVC PRN (21:05)
[2020-09-16] MEDS ORDERED: Dextrose Gel 15 GM/37.5 ML TUBE PO PRN ×2 (21:05)
[2020-09-16] MEDS ORDERED: MethylPREDNISolone 40 MG/ML VIAL IVP ONE (21:07)
[2020-09-16] MEDS ORDERED: Acetaminophen 325 MG TABLET PO PRN (21:11)
[2020-09-16] MEDS ORDERED: Naloxone 0.4 MG/ML INJ IVP PRN (21:11)
[2020-09-16] MEDS ORDERED: Ondansetron 4 MG/2 ML VIAL IVP PRN (21:11)
[2020-09-16] MEDS ORDERED: methylPREDNISolone 125 MG/2 ML VIAL IVP ONE (21:17)
[2020-09-16 22:18] LABS: Estimated Average Glucose 114 mg/dl; Hemoglobin A1C 5.6 %
[2020-09-16] MEDS: Albuterol 2.5 MG/3 ML NEBULIZER IH SCH (23:27)
[2020-09-17] MEDS: Albuterol 2.5 MG/3 ML NEBULIZER IH SCH ×5 (03:28→19:53)
[2020-09-17 04:59] LABS: Basophils % 0.2 %; Eosinophils % 0.1 %; Hematocrit 32.1 % (37.5-50.1); Hemoglobin 8.8 g/dL (12.9-16.9); Immature Granulocytes % 0.6 % (0-4); Lymphocytes # 0.4 K/mcL (0.6-4.6); Mean Corpuscular HGB Conc 27.4 g/dL (31.6-35.5); Mean Corpuscular Hemoglobin 22.1 pg (28.0-33.3); Mean Corpuscular Volume 80.7 fL (83.0-100.0); Mean Platelet Volume 10.4 fL (9.4-12.4); Monocytes # 0.1 K/mcL (0.0-1.3); Monocytes % 0.8 %; Neutrophils # 10.5 K/mcL (1.6-8.9); Platelet Count 402 K/mcL (140-400); Red Blood Count 3.98 M/mcL (4.19-5.50); Red Cell Distribution Width 22.8 % (11.5-14.5); Segmented Neutrophils % 94.3 %; White Blood Count 11.1 K/mcL (4.3-11.1)
[2020-09-17 05:19] LABS: Alanine Aminotransferase 17 Units/L (7-52); Albumin 3.9 g/dL (3.5-5.7); Albumin/Globulin Ratio 1.2 (1.1-2.2); Alkaline Phosphatase 67 Units/L (34-104); Aspartate Amino Transferase 11 Units/L (13-39); BUN/Creatinine Ratio 19 (6-26); Bilirubin,Total 0.6 mg/dL (0.3-1.0); Blood Urea Nitrogen 18 mg/dL (8-23); Calcium 9.1 mg/dL (8.6-10.3); Carbon Dioxide 28 mEq/L (23-29); Chloride 102 mEq/L (98-107); Globulin 3.3 g/dL (2.4-3.5); Glucose 184 mg/dL (70-105); Osmolality,Calculated 293 (280-300); Potassium 3.7 mEq/L (3.5-5.1); Sodium 138 mEq/L (136-145); Total Protein 7.2 g/dL (6.4-8.9); eGFR For African Americans > 60 (> 60); eGFR For Non-African Americans > 60 (> 60)
[2020-09-17] MEDS ORDERED: *HR* Enoxaparin 120 MG/0.8 ML SYRINGE SQ SCH (06:00)
[2020-09-17] MEDS: Ascorbic Acid 500 MG TABLET PO SCH (07:46)
[2020-09-17] MEDS: predniSONE 20 MG TABLET PO SCH (07:46)
[2020-09-17] MEDS: Furosemide 40 MG/4 ML VIAL IVP SCH (07:46)
[2020-09-17] MEDS: carvediloL 6.25 MG TABLET PO SCH ×2 (07:46→20:19)
[2020-09-17] MEDS: Insulin LISPRO 300 UNITS/3 ML VIAL SUBQ SCH ×4 (07:49→20:20)
[2020-09-17] MEDS: Benzonatate 100 MG CAPSULE PO PRN ×2 (11:12→17:09)
[2020-09-17] MEDS: Melatonin 3 MG TABLET PO PRN (21:11)
[2020-09-18] MEDS: Albuterol 2.5 MG/3 ML NEBULIZER IH SCH ×5 (00:16→15:48)
[2020-09-18] MEDS: Insulin LISPRO 300 UNITS/3 ML VIAL SUBQ SCH ×4 (07:52→19:59)
[2020-09-18] MEDS: Furosemide 40 MG/4 ML VIAL IVP SCH (08:07)
[2020-09-18] MEDS: carvediloL 6.25 MG TABLET PO SCH ×2 (08:08→19:59)
[2020-09-18] MEDS: predniSONE 20 MG TABLET PO SCH (08:08)
[2020-09-18] MEDS: Ascorbic Acid 500 MG TABLET PO SCH (08:08)
[2020-09-18] MEDS: Benzonatate 100 MG CAPSULE PO PRN (15:47)
[2020-09-18] MEDS: MethylPREDNISolone 40 MG/ML VIAL IVP SCH (17:12)
[2020-09-18] MEDS: levoFLOXacin 750 MG TABLET PO SCH (17:13)
[2020-09-18] MEDS: Ipratropium/Albuterol Neb 3 ML IH SCH ×2 (18:08→22:18)
[2020-09-18] MEDS: Benzonatate 100 MG CAPSULE PO SCH (19:59)
[2020-09-18 20:33] LABS: Iron 15 mcg/dL (65-175)
[2020-09-18 21:00] LABS: % Iron Saturation 3 % (20-55); Transferrin 315 mg/dL (203-362)
[2020-09-18 21:13] LABS: Ferritin 29 ng/mL (20-250)
[2020-09-18] MEDS ORDERED: hydrALAZINE 10 MG TABLET PO STA (23:19)
[2020-09-18] MEDS: Melatonin 3 MG TABLET PO PRN (23:50)
[2020-09-19 01:53] LABS: BUN/Creatinine Ratio 32 (6-26); Blood Urea Nitrogen 30 mg/dL (8-23); Calcium 9.2 mg/dL (8.6-10.3); Carbon Dioxide 28 mEq/L (23-29); Chloride 104 mEq/L (98-107); Glucose 223 mg/dL (70-105); Osmolality,Calculated 303 (280-300); Sodium 140 mEq/L (136-145); eGFR For African Americans > 60 (> 60); eGFR For Non-African Americans > 60 (> 60)
[2020-09-19] MEDS ORDERED: hydrALAZINE 10 MG TABLET PO ONE (02:58)
[2020-09-19] MEDS: Ipratropium/Albuterol Neb 3 ML IH SCH ×4 (04:02→23:12)
[2020-09-19] MEDS: MethylPREDNISolone 40 MG/ML VIAL IVP SCH (05:17)
[2020-09-19] MEDS: levoFLOXacin 750 MG TABLET PO SCH (08:16)
[2020-09-19] MEDS: Furosemide 40 MG/4 ML VIAL IVP SCH ×2 (08:17→18:52)
[2020-09-19] MEDS: carvediloL 6.25 MG TABLET PO SCH ×2 (08:17→21:09)
[2020-09-19] MEDS: Benzonatate 100 MG CAPSULE PO SCH ×3 (08:17→21:09)
[2020-09-19] MEDS: Ascorbic Acid 500 MG TABLET PO SCH (08:17)
[2020-09-19] MEDS: Insulin LISPRO 300 UNITS/3 ML VIAL SUBQ SCH ×4 (08:18→21:09)
[2020-09-19 10:29] LABS: INR 1.1; Prothrombin Time 13.2 Seconds (9.4-12.1)
[2020-09-19 15:31] LABS: % Iron Saturation 37 % (20-55); Iron 158 mcg/dL (65-175); Transferrin 309 mg/dL (203-362)
[2020-09-19 15:49] LABS: Ferritin 19 ng/mL (20-250)
[2020-09-19] MEDS ORDERED: Warfarin perPT PO PRN (18:00)
[2020-09-19] MEDS ORDERED: Enoxaparin Weight Dosing SQ SCH (18:00)
[2020-09-19] MEDS: *HR* Heparin 5,000 UNIT/ML VIAL SQ SCH (18:56)
[2020-09-19] MEDS: Melatonin 3 MG TABLET PO PRN (22:15)
[2020-09-20] MEDS: Ipratropium/Albuterol Neb 3 ML IH SCH ×4 (04:01→22:19)
[2020-09-20] MEDS: *HR* Heparin 5,000 UNIT/ML VIAL SQ SCH ×2 (05:40→16:09)
[2020-09-20] MEDS: MethylPREDNISolone 40 MG/ML VIAL IVP SCH (07:55)
[2020-09-20] MEDS: Benzonatate 100 MG CAPSULE PO SCH ×3 (07:55→20:01)
[2020-09-20] MEDS: carvediloL 6.25 MG TABLET PO SCH ×2 (07:55→20:01)
[2020-09-20] MEDS: Furosemide 40 MG/4 ML VIAL IVP SCH ×2 (07:55→16:09)
[2020-09-20] MEDS: Ascorbic Acid 500 MG TABLET PO SCH (07:56)
[2020-09-20] MEDS: levoFLOXacin 750 MG TABLET PO SCH (07:56)
[2020-09-20] MEDS: Insulin LISPRO 300 UNITS/3 ML VIAL SUBQ SCH ×4 (07:56→21:18)
[2020-09-20] MEDS ORDERED: Ferumoxytol 510 MG in 0.9 % Sodium Chloride 100 ML IVPB ONE (18:11)
[2020-09-21] MEDS: Ipratropium/Albuterol Neb 3 ML IH SCH ×4 (03:44→22:18)
[2020-09-21] MEDS: *HR* Heparin 5,000 UNIT/ML VIAL SQ SCH (04:20)
[2020-09-21 04:58] LABS: Basophils % 0.2 %; Eosinophils % 0.1 %
[2020-09-21 04:59] LABS: Hemoglobin 9.1 g/dL (12.9-16.9); Immature Granulocytes % 0.8 % (0-4); Lymphocytes # 1.9 K/mcL (0.6-4.6); Lymphocytes % 13.7 %; Mean Corpuscular HGB Conc 27.6 g/dL (31.6-35.5); Mean Corpuscular Hemoglobin 22.5 pg (28.0-33.3); Mean Corpuscular Volume 81.7 fL (83.0-100.0); Monocytes # 1.4 K/mcL (0.0-1.3); Monocytes % 10.2 %; Neutrophils # 10.5 K/mcL (1.6-8.9); Platelet Count 416 K/mcL (140-400); Red Blood Count 4.04 M/mcL (4.19-5.50); Red Cell Distribution Width 22.2 % (11.5-14.5)
[2020-09-21 05:04] LABS: INR 1.1; Prothrombin Time 13.1 Seconds (9.4-12.1)
[2020-09-21 05:15] LABS: BUN/Creatinine Ratio 27 (6-26); Blood Urea Nitrogen 25 mg/dL (8-23); Calcium 9.1 mg/dL (8.6-10.3); Carbon Dioxide 30 mEq/L (23-29); Chloride 103 mEq/L (98-107); Glucose 169 mg/dL (70-105); Osmolality,Calculated 296 (280-300); Potassium 3.7 mEq/L (3.5-5.1); Sodium 139 mEq/L (136-145); eGFR For African Americans > 60 (> 60); eGFR For Non-African Americans > 60 (> 60)
[2020-09-21] MEDS: Insulin LISPRO 300 UNITS/3 ML VIAL SUBQ SCH ×4 (07:33→21:29)
[2020-09-21] MEDS: MethylPREDNISolone 40 MG/ML VIAL IVP SCH (08:04)
[2020-09-21] MEDS: levoFLOXacin 750 MG TABLET PO SCH (08:05)
[2020-09-21] MEDS: Ascorbic Acid 500 MG TABLET PO SCH (08:05)
[2020-09-21] MEDS: Benzonatate 100 MG CAPSULE PO SCH ×3 (08:06→19:47)
[2020-09-21] MEDS: Furosemide 40 MG/4 ML VIAL IVP SCH ×2 (08:06→17:41)
[2020-09-21] MEDS: carvediloL 6.25 MG TABLET PO SCH ×2 (08:07→19:47)
[2020-09-21] MEDS: Dextromethorphan Polistrx(12h) 30 MG/5 ML UDC PO SCH ×2 (10:13→21:28)
[2020-09-21] MEDS: Vancomycin 1,750 MG/517.5 ML IV.SOLN IVPB SCH ×2 (12:52→23:53)
[2020-09-21 14:48] LABS: INR 1.1; Prothrombin Time 13.1 Seconds (9.4-12.1)
[2020-09-21] MEDS ORDERED: *HR* Warfarin 5 MG TABLET PO ONE (18:00)
[2020-09-21] MEDS ORDERED: Warfarin perPT PO PRN (18:00)
[2020-09-21] MEDS: Melatonin 3 MG TABLET PO PRN (21:28)
[2020-09-22] MEDS: Ipratropium/Albuterol Neb 3 ML IH SCH ×4 (04:25→21:22)
[2020-09-22 04:37] LABS: Red Cell Distribution Width 22.5 % (11.5-14.5)
[2020-09-22 04:38] LABS: Hematocrit 34.7 % (37.5-50.1); Hemoglobin 9.6 g/dL (12.9-16.9); Mean Corpuscular HGB Conc 27.7 g/dL (31.6-35.5); Mean Corpuscular Hemoglobin 22.9 pg (28.0-33.3); Mean Corpuscular Volume 82.8 fL (83.0-100.0); Platelet Count 432 K/mcL (140-400); Red Blood Count 4.19 M/mcL (4.19-5.50); White Blood Count 15.2 K/mcL (4.3-11.1)
[2020-09-22 04:42] LABS: INR 1.1; Prothrombin Time 13.2 Seconds (9.4-12.1)
[2020-09-22 04:56] LABS: BUN/Creatinine Ratio 28 (6-26); Blood Urea Nitrogen 27 mg/dL (8-23); Calcium 8.7 mg/dL (8.6-10.3); Carbon Dioxide 30 mEq/L (23-29); Chloride 102 mEq/L (98-107); Glucose 220 mg/dL (70-105); Osmolality,Calculated 302 (280-300); Potassium 3.6 mEq/L (3.5-5.1); Sodium 140 mEq/L (136-145); eGFR For African Americans > 60 (> 60); eGFR For Non-African Americans > 60 (> 60)
[2020-09-22] MEDS ORDERED: *HR* Heparin 5,000 UNIT/ML VIAL SQ SCH (06:00)
[2020-09-22] MEDS: Insulin LISPRO 300 UNITS/3 ML VIAL SUBQ SCH ×4 (07:52→21:07)
[2020-09-22] MEDS: Benzonatate 100 MG CAPSULE PO SCH (08:38)
[2020-09-22] MEDS: Ascorbic Acid 500 MG TABLET PO SCH (08:39)
[2020-09-22] MEDS: levoFLOXacin 750 MG TABLET PO SCH (08:40)
[2020-09-22] MEDS: carvediloL 6.25 MG TABLET PO SCH ×2 (08:40→21:07)
[2020-09-22] MEDS: Furosemide 40 MG/4 ML VIAL IVP SCH ×2 (08:40→17:35)
[2020-09-22] MEDS: Dextromethorphan Polistrx(12h) 30 MG/5 ML UDC PO SCH (08:40)
[2020-09-22] MEDS: MethylPREDNISolone 40 MG/ML VIAL IVP SCH (08:40)
[2020-09-22] MEDS: Cefepime HCl 2,000 MG in Water for inj. (sterile) 20 ML IVP SCH ×2 (12:20→21:05)
[2020-09-22] MEDS: Vancomycin 1,750 MG/517.5 ML IV.SOLN IVPB SCH (12:20)
[2020-09-22] MEDS: metOLazone 2.5 MG TABLET PO SCH (17:38)
[2020-09-22] MEDS ORDERED: *HR* Warfarin 5 MG TABLET PO ONE (18:00)
[2020-09-23] MEDS: GuaiFENesin/Codeine Oral Soln 5 ML UDC PO PRN (00:33)
[2020-09-23] MEDS: Vancomycin 1,750 MG/517.5 ML IV.SOLN IVPB SCH ×2 (01:00→12:11)
[2020-09-23] MEDS ORDERED: Water for inj. (sterile) 20 ML IV ONE (03:15)
[2020-09-23] MEDS: Cefepime HCl 2,000 MG in Water for inj. (sterile) 20 ML IVP SCH ×3 (03:16→18:36)
[2020-09-23] MEDS: Ipratropium/Albuterol Neb 3 ML IH SCH ×4 (03:31→21:38)
[2020-09-23 06:26] LABS: Basophils # 0.1 K/mcL (0.0-0.2); Basophils % 0.7 %; Eosinophils % 0.2 %; Hematocrit 38.4 % (37.5-50.1); Hemoglobin 10.7 g/dL (12.9-16.9); Immature Granulocytes % 3.9 % (0-4); Lymphocytes # 2.3 K/mcL (0.6-4.6); Lymphocytes % 12.4 %; Mean Corpuscular HGB Conc 27.9 g/dL (31.6-35.5); Mean Corpuscular Hemoglobin 22.7 pg (28.0-33.3); Mean Corpuscular Volume 81.5 fL (83.0-100.0); Mean Platelet Volume 10.3 fL (9.4-12.4); Monocytes # 1.9 K/mcL (0.0-1.3); Monocytes % 9.9 %; Neutrophils # 13.8 K/mcL (1.6-8.9); Nucleated Red Blood Cells 0.5 /100 WBC (0); Platelet Count 493 K/mcL (140-400); Red Blood Count 4.71 M/mcL (4.19-5.50); Red Cell Distribution Width 23.3 % (11.5-14.5); Segmented Neutrophils % 72.9 %; White Blood Count 18.9 K/mcL (4.3-11.1)
[2020-09-23 06:31] LABS: INR 1.1; Prothrombin Time 12.8 Seconds (9.4-12.1)
[2020-09-23 06:45] LABS: Anisocytosis 1+ (Not Present); Hypochromasia Present (Not Present); Platelet Estimate Normal (Normal); Polychromasia 1+ (Not Present)
[2020-09-23 06:46] LABS: BUN/Creatinine Ratio 22 (6-26); Blood Urea Nitrogen 24 mg/dL (8-23); Calcium 9.3 mg/dL (8.6-10.3); Carbon Dioxide 33 mEq/L (23-29); Chloride 100 mEq/L (98-107); Glucose 169 mg/dL (70-105); Osmolality,Calculated 298 (280-300); Potassium 3.6 mEq/L (3.5-5.1); Sodium 140 mEq/L (136-145); eGFR For African Americans > 60 (> 60); eGFR For Non-African Americans > 60 (> 60)
[2020-09-23] MEDS: Insulin LISPRO 300 UNITS/3 ML VIAL SUBQ SCH ×4 (08:35→20:31)
[2020-09-23] MEDS: Furosemide 40 MG/4 ML VIAL IVP SCH ×2 (08:35→16:36)
[2020-09-23] MEDS: carvediloL 6.25 MG TABLET PO SCH ×2 (08:36→20:31)
[2020-09-23] MEDS: MethylPREDNISolone 40 MG/ML VIAL IVP SCH (08:36)
[2020-09-23] MEDS: Ascorbic Acid 500 MG TABLET PO SCH (08:36)
[2020-09-23] MEDS: levoFLOXacin 750 MG TABLET PO SCH (08:36)
[2020-09-23] MEDS: metOLazone 2.5 MG TABLET PO SCH ×2 (08:36→16:37)
[2020-09-23 15:12] LABS: Bilirubin,Urine Negative (Negative); Blood,Urine Negative (Negative); Clarity,Urine Clear (Clear); Color,Urine Colorless (Yellow); Glucose,Urine (UA) Normal (Normal); Ketones,Urine Negative (Negative); Leukocyte Esterase,Urine Negative (Negative); Nitrite,Urine Negative (Negative); PH,Urine 6.5 pH Units (5.0-8.0); Protein,Urine Negative (Neg-Trace); Specific Gravity,Urine 1.016 (1.010-1.025); Urobilinogen,Urine Normal (Normal)
[2020-09-23] MEDS ORDERED: *HR* Warfarin 7.5 MG TABLET PO ONE (18:00)
[2020-09-24] MEDS: Vancomycin 1,750 MG/517.5 ML IV.SOLN IVPB SCH ×2 (00:09→13:57)
[2020-09-24] MEDS: Cefepime HCl 2,000 MG in Water for inj. (sterile) 20 ML IVP SCH ×3 (01:48→18:14)
[2020-09-24] MEDS: GuaiFENesin/Codeine Oral Soln 5 ML UDC PO PRN (02:42)
[2020-09-24] MEDS: Ipratropium/Albuterol Neb 3 ML IH SCH ×4 (03:48→22:51)
[2020-09-24 07:03] LABS: Basophils # 0.1 K/mcL (0.0-0.2); Basophils % 0.5 %; Eosinophils # 0.1 K/mcL (0.0-0.6); Eosinophils % 0.3 %; Hematocrit 37.5 % (37.5-50.1); Hemoglobin 10.9 g/dL (12.9-16.9); Immature Granulocytes % 2.7 % (0-4); Lymphocytes # 2.3 K/mcL (0.6-4.6); Lymphocytes % 11.2 %; Mean Corpuscular HGB Conc 29.1 g/dL (31.6-35.5); Mean Corpuscular Hemoglobin 23.4 pg (28.0-33.3); Mean Corpuscular Volume 80.5 fL (83.0-100.0); Mean Platelet Volume 10.4 fL (9.4-12.4); Monocytes # 1.9 K/mcL (0.0-1.3); Monocytes % 9.3 %; Platelet Count 448 K/mcL (140-400); Red Blood Count 4.66 M/mcL (4.19-5.50); Red Cell Distribution Width 23.9 % (11.5-14.5); White Blood Count 20.9 K/mcL (4.3-11.1)
[2020-09-24 07:06] LABS: INR 1.1
[2020-09-24 07:08] LABS: Neutrophils # 15.9 K/mcL (1.6-8.9)
[2020-09-24 07:22] LABS: BUN/Creatinine Ratio 30 (6-26); Blood Urea Nitrogen 35 mg/dL (8-23); Calcium 9.4 mg/dL (8.6-10.3); Carbon Dioxide 29 mEq/L (23-29); Chloride 100 mEq/L (98-107); Glucose 143 mg/dL (70-105); Osmolality,Calculated 296 (280-300); Potassium 4.1 mEq/L (3.5-5.1); Sodium 138 mEq/L (136-145); eGFR For African Americans > 60 (> 60); eGFR For Non-African Americans > 60 (> 60)
[2020-09-24 07:24] LABS: Anisocytosis 2+ (Not Present); Hypochromasia Present (Not Present); Polychromasia 1+ (Not Present)
[2020-09-24 07:25] LABS: Platelet Estimate Normal (Normal)
[2020-09-24] MEDS: Insulin LISPRO 300 UNITS/3 ML VIAL SUBQ SCH ×4 (08:12→20:20)
[2020-09-24] MEDS: Furosemide 40 MG/4 ML VIAL IVP SCH ×2 (08:29→17:07)
[2020-09-24] MEDS: MethylPREDNISolone 40 MG/ML VIAL IVP SCH (08:29)
[2020-09-24] MEDS: levoFLOXacin 750 MG TABLET PO SCH (08:30)
[2020-09-24] MEDS: Ascorbic Acid 500 MG TABLET PO SCH (08:30)
[2020-09-24] MEDS: metOLazone 2.5 MG TABLET PO SCH ×2 (08:30→17:07)
[2020-09-24] MEDS: carvediloL 6.25 MG TABLET PO SCH ×2 (08:30→20:19)
[2020-09-24] MEDS ORDERED: *HR* HYDROmorphone (PF) 1 MG/ML SYRINGE IVP PRN (11:45)
[2020-09-24] MEDS ORDERED: Ondansetron 4 MG/2 ML VIAL IVP PRN (11:45)
[2020-09-24] MEDS ORDERED: *HR* OxyCODONE Immed Rel 5 MG TABLET PO PRN (11:45)
[2020-09-24] MEDS ORDERED: Promethazine 6.25 MG in Water for inj. (sterile) 20 ML IVPB PRN (11:45)
[2020-09-24] MEDS ORDERED: *HR* Succinylcholine 200 MG/10 ML VIAL IVP ONE (11:50)
[2020-09-24] MEDS ORDERED: Ondansetron 4 MG/2 ML VIAL ONE (11:50)
[2020-09-24] MEDS ORDERED: *HR* Rocuronium Bromide 50 MG/5 ML VIAL ONE (11:50)
[2020-09-24] MEDS ORDERED: *HR* FentaNYL (PF) 100 MCG/2 ML VIAL ONE (11:50)
[2020-09-24] MEDS ORDERED: Lidocaine -MPF 2% 2 ML VIAL ONE (11:50)
[2020-09-24] MEDS ORDERED: Dexamethasone 4 MG/ML VIAL ONE ×2 (11:50→12:16)
[2020-09-24] MEDS ORDERED: *HR* Propofol 200 MG/20 ML VIAL IVP ONE (11:51)
[2020-09-24] MEDS ORDERED: EPHEDrine 50 MG/ML VIAL ONE (12:25)
[2020-09-24 14:01] LABS: Source of Body Fluid LLL BAL; Source of Body Fluid RLL BAL
[2020-09-24 15:14] LABS: Appearance of Body Fluid Cloudy (Clear); Volume of Body Fluid 20 mL
[2020-09-24 15:15] LABS: Appearance of Body Fluid Cloudy (Clear); Volume of Body Fluid 15 mL
[2020-09-24] MEDS: Vancomycin 1,250 MG/262.5 ML IV.SOLN IVPB SCH (17:07)
[2020-09-24] MEDS ORDERED: *HR* Warfarin 7.5 MG TABLET PO ONE (18:45)
[2020-09-25] MEDS: Melatonin 3 MG TABLET PO PRN (00:42)
[2020-09-25] MEDS: Cefepime HCl 2,000 MG in Water for inj. (sterile) 20 ML IVP SCH ×2 (02:28→10:30)
[2020-09-25] MEDS: Ipratropium/Albuterol Neb 3 ML IH SCH ×4 (03:46→22:53)
[2020-09-25 06:05] LABS: Segmented Neutrophils % 87.7 %
[2020-09-25 06:07] LABS: Basophils % 0.2 %; Hematocrit 38.4 % (37.5-50.1); Immature Granulocytes % 1.4 % (0-4); Lymphocytes # 0.6 K/mcL (0.6-4.6); Lymphocytes % 3.1 %; Mean Corpuscular HGB Conc 28.6 g/dL (31.6-35.5); Mean Corpuscular Hemoglobin 23.8 pg (28.0-33.3); Mean Corpuscular Volume 82.9 fL (83.0-100.0); Monocytes # 1.4 K/mcL (0.0-1.3); Monocytes % 7.6 %; Neutrophils # 16.1 K/mcL (1.6-8.9); Platelet Count 421 K/mcL (140-400); Red Blood Count 4.63 M/mcL (4.19-5.50); Red Cell Distribution Width 23.9 % (11.5-14.5); White Blood Count 18.4 K/mcL (4.3-11.1)
[2020-09-25] MEDS: Vancomycin 1,250 MG/262.5 ML IV.SOLN IVPB SCH (06:12)
[2020-09-25 06:17] LABS: INR 1.1; Prothrombin Time 12.2 Seconds (9.4-12.1)
[2020-09-25 06:31] LABS: Calcium 9.4 mg/dL (8.6-10.3); Potassium 4.1 mEq/L (3.5-5.1)
[2020-09-25] MEDS: Insulin LISPRO 300 UNITS/3 ML VIAL SUBQ SCH ×4 (10:29→20:25)
[2020-09-25] MEDS: MethylPREDNISolone 40 MG/ML VIAL IVP SCH (10:29)
[2020-09-25] MEDS: carvediloL 6.25 MG TABLET PO SCH ×2 (10:30→20:25)
[2020-09-25] MEDS: Ascorbic Acid 500 MG TABLET PO SCH (10:31)
[2020-09-25] MEDS: levoFLOXacin 750 MG TABLET PO SCH (10:31)
[2020-09-25] MEDS: metOLazone 2.5 MG TABLET PO SCH (10:56)
[2020-09-25] MEDS ORDERED: Cefepime HCl 2,000 MG in Water for inj. (sterile) 20 ML IVP SCH (18:00)
[2020-09-25] MEDS ORDERED: *HR* Warfarin 7.5 MG TABLET PO ONE (18:00)
[2020-09-26] MEDS: Ipratropium/Albuterol Neb 3 ML IH SCH ×2 (03:21→11:07)
[2020-09-26 06:20] LABS: Eosinophils % 0.1 %; Hematocrit 38.6 % (37.5-50.1)
[2020-09-26 06:21] LABS: INR 1.3; Prothrombin Time 14.4 Seconds (9.4-12.1)
[2020-09-26 06:22] LABS: Basophils % 0.2 %; Hemoglobin 11.1 g/dL (12.9-16.9); Immature Granulocytes % 1.4 % (0-4); Lymphocytes % 6.5 %; Mean Corpuscular HGB Conc 28.8 g/dL (31.6-35.5); Mean Corpuscular Hemoglobin 23.8 pg (28.0-33.3); Mean Corpuscular Volume 82.8 fL (83.0-100.0); Monocytes # 1.5 K/mcL (0.0-1.3); Monocytes % 8.4 %; Neutrophils # 14.7 K/mcL (1.6-8.9); Platelet Count 389 K/mcL (140-400); Red Blood Count 4.66 M/mcL (4.19-5.50); Red Cell Distribution Width 23.9 % (11.5-14.5); Segmented Neutrophils % 83.4 %; White Blood Count 17.6 K/mcL (4.3-11.1)
[2020-09-26 06:23] LABS: Anisocytosis 2+ (Not Present); Lymphocytes # 1.1 K/mcL (0.6-4.6)
[2020-09-26 06:24] LABS: Hypochromasia Present (Not Present)
[2020-09-26 06:31] LABS: BUN/Creatinine Ratio 44 (6-26); Blood Urea Nitrogen 56 mg/dL (8-23); Calcium 9.6 mg/dL (8.6-10.3); Carbon Dioxide 32 mEq/L (23-29); Chloride 96 mEq/L (98-107); Glucose 184 mg/dL (70-105); Osmolality,Calculated 300 (280-300); Potassium 3.8 mEq/L (3.5-5.1); Sodium 135 mEq/L (136-145); eGFR For African Americans > 60 (> 60); eGFR For Non-African Americans 55 (> 60)
[2020-09-26] MEDS ORDERED: Vancomycin 1,250 MG/262.5 ML IV.SOLN IVPB ONE (07:00)
[2020-09-26] MEDS: Insulin LISPRO 300 UNITS/3 ML VIAL SUBQ SCH ×2 (08:29→12:21)
[2020-09-26] MEDS: carvediloL 6.25 MG TABLET PO SCH (08:30)
[2020-09-26] MEDS: levoFLOXacin 750 MG TABLET PO SCH (08:30)
[2020-09-26] MEDS: Ascorbic Acid 500 MG TABLET PO SCH (08:31)
[2020-09-26] MEDS ORDERED: predniSONE 20 MG TABLET PO SCH (09:00)
[2020-09-26 10:57] VITALS: BP 139/81
[2020-09-26] MEDS ORDERED: *HR* Warfarin 7.5 MG TABLET PO ONE (18:00)
== END 2020-09-26 13:38 | disposition home health service (06) | DRG 291 ==
LOC: EMEROOARM 15:58 → 3BNU 15:58 → SUATTDRO 09-19 16:40
PROVIDERS: ADMIT Family Medicine; ATTEND Internal Medicine
PROC: ENDOBRF (2020-09-24 11:40)

== ENCOUNTER 2022-04-03 08:58 | Inpatient (IN) ==
[2022-04-03] MEDS ORDERED: Morphine Sulfate Oral CONC 10 MG/0.5 ML ORAL.SYG PO PRN ×2 (13:00→16:12)
[2022-04-03] MEDS ORDERED: ALPRAZolam 0.5 MG TABLET PO PRN (13:00)
[2022-04-03] MEDS ORDERED: Acetaminophen 325 MG TABLET PO PRN (13:00)
[2022-04-03] MEDS ORDERED: Albuterol 2.5 MG/3 ML NEBULIZER IH PRN (13:00)
[2022-04-03] MEDS ORDERED: Haloperidol Oral Conc 10 MG/5 ML UDC PO PRN (13:00)
[2022-04-03] MEDS ORDERED: hydrOXYzine pamoate 25 MG CAPSULE PO PRN (13:17)
[2022-04-03] MEDS ORDERED: Benzonatate 100 MG CAPSULE PO PRN (13:17)
[2022-04-03] MEDS ORDERED: *HR* LORazepam 1 MG TABLET PO PRN (16:11)
[2022-04-03] MEDS: carvediloL 6.25 MG TABLET PO SCH (17:54)
[2022-04-03] MEDS: Budesonide/Formoterol 160/4.5 1 PUFF INH IH SCH (20:31)
[2022-04-03] MEDS: Gabapentin 300 MG CAPSULE PO SCH (20:40)
[2022-04-03] MEDS: Nystatin POWDER 30 GM BOTTLE TP SCH (20:41)
[2022-04-03] MEDS: Morphine Sulfate Oral CONC 10 MG/0.5 ML ORAL.SYG SL SCH (20:41)
[2022-04-03] MEDS: Haloperidol Oral Conc 10 MG/5 ML UDC PO SCH (20:42)
[2022-04-03] MEDS: dexAMETHasone 4 MG TABLET PO SCH (20:42)
[2022-04-03] MEDS ORDERED: Morphine Sulfate Oral CONC 10 MG/0.5 ML ORAL.SYG SL SCH (21:00)
[2022-04-04] MEDS: Nystatin POWDER 30 GM BOTTLE TP SCH ×3 (01:11→19:40)
[2022-04-04] MEDS: amLODIPine 5 MG TABLET PO SCH (08:00)
[2022-04-04] MEDS: carvediloL 6.25 MG TABLET PO SCH ×2 (08:00→16:55)
[2022-04-04] MEDS: Furosemide 40 MG TABLET PO SCH (08:00)
[2022-04-04] MEDS: dexAMETHasone 4 MG TABLET PO SCH ×2 (08:00→19:27)
[2022-04-04] MEDS: Budesonide/Formoterol 160/4.5 1 PUFF INH IH SCH ×2 (09:11→19:43)
[2022-04-04] MEDS: Haloperidol Oral Conc 10 MG/5 ML UDC PO SCH (19:26)
[2022-04-04] MEDS: Morphine Sulfate Oral CONC 10 MG/0.5 ML ORAL.SYG SL SCH (19:27)
[2022-04-04] MEDS: Gabapentin 300 MG CAPSULE PO SCH (19:27)
[2022-04-04] MEDS: Ipratropium/Albuterol Neb 3 ML IH PRN (19:43)
[2022-04-04] MEDS ORDERED: Morphine Sulfate Oral CONC 10 MG/0.5 ML ORAL.SYG PO PRN (20:41)
[2022-04-04] MEDS: Nitroglycerin 0.4 MG TAB.SUBL SL PRN ×2 (20:45→21:00)
[2022-04-04] MEDS: *HR* LORazepam Oral Conc 2 MG/ML PO PRN (22:40)
[2022-04-05] MEDS: Morphine Sulfate Oral CONC 10 MG/0.5 ML ORAL.SYG PO PRN ×8 (00:47→16:38)
[2022-04-05] MEDS: Ipratropium/Albuterol Neb 3 ML IH PRN ×4 (00:58→23:13)
[2022-04-05] MEDS: *HR* LORazepam Oral Conc 2 MG/ML PO PRN ×3 (03:07→12:34)
[2022-04-05 07:22] VITALS: PULSE 94
[2022-04-05] MEDS: carvediloL 6.25 MG TABLET PO SCH ×2 (07:23→15:49)
[2022-04-05] MEDS: Furosemide 40 MG TABLET PO SCH (07:24)
[2022-04-05] MEDS: Nystatin POWDER 30 GM BOTTLE TP SCH ×2 (07:24→19:33)
[2022-04-05] MEDS: amLODIPine 5 MG TABLET PO SCH (07:24)
[2022-04-05] MEDS: dexAMETHasone 4 MG TABLET PO SCH ×2 (07:24→19:30)
[2022-04-05] MEDS: Budesonide/Formoterol 160/4.5 1 PUFF INH IH SCH ×2 (09:43→22:28)
[2022-04-05 10:16] LABS: Adenovirus Not Detected (Not Detect); Bordetella Pertussis Not Detected (Not Detect); Chlamydophila pneumoniae Not Detected (Not Detect); Coronavirus 229E Not Detected (Not Detect); Coronavirus HKU1 Not Detected (Not Detect); Coronavirus NL63 Not Detected (Not Detect); Coronavirus OC43 Not Detected (Not Detect); Human Metapneumovirus Not Detected (Not Detect); Human Rhinovirus/Enterovirus Not Detected (Not Detect); Influenza A Subtype 2009 H1 Not Detected (Not Detect); Influenza B Not Detected (Not Detect); Mycoplasma pneumoniae Not Detected (Not Detect); Parainfluenza Virus 1 Not Detected (Not Detect); Parainfluenza Virus 2 Not Detected (Not Detect); Parainfluenza Virus 3 Not Detected (Not Detect); Parainfluenza Virus 4 Not Detected (Not Detect); Respiratory Syncytial Virus Not Detected (Not Detect); SARS-CoV-2 Not Detected (Not Detect)
[2022-04-05] MEDS ORDERED: Nitroglycerin 1 INCH/GM PACKET TP SCH (12:00)
[2022-04-05] MEDS: Atropine Sulfate 1% 40 DROP/2 ML BOTTLE SL PRN ×2 (12:34→21:21)
[2022-04-05] MEDS: Haloperidol Oral Conc 10 MG/5 ML UDC PO PRN ×2 (13:02→16:56)
[2022-04-05] MEDS ORDERED: *HR* LORazepam Oral Conc 2 MG/ML PO PRN (13:05)
[2022-04-05] MEDS ORDERED: Acetaminophen 650 MG RECTAL SUPP RC PRN (13:10)
[2022-04-05] MEDS ORDERED: Morphine Sulfate 2 MG/ML SYRINGE IVP PRN (16:48)
[2022-04-05] MEDS ORDERED: Morphine Sulfate 2 MG/ML SYRINGE IVP ONE ×2 (17:07→18:05)
[2022-04-05] MEDS ORDERED: Haloperidol Lactate 5 MG/ML VIAL IVP PRN (17:07)
[2022-04-05] MEDS: *HR* LORazepam 2 MG/ML VIAL IVP PRN ×2 (17:10→19:15)
[2022-04-05] MEDS ORDERED: Morphine Sulfate 2 MG/ML SYRINGE IVP SCH (17:45)
[2022-04-05] MEDS: Morphine Sulfate 2 MG/ML SYRINGE IVP PRN ×6 (17:54→23:12)
[2022-04-05] MEDS ORDERED: *HR* LORazepam 2 MG/ML VIAL IVP PRN (19:24)
[2022-04-05] MEDS: Gabapentin 300 MG CAPSULE PO SCH (19:30)
[2022-04-05] MEDS: Haloperidol Oral Conc 10 MG/5 ML UDC PO SCH (19:30)
[2022-04-05] MEDS: Morphine Sulfate Oral CONC 10 MG/0.5 ML ORAL.SYG SL SCH (20:13)
[2022-04-05 21:31] VITALS: BP 108/70; TEMP 100; O2SAT 68
[2022-04-06] MEDS: Morphine Sulfate 2 MG/ML SYRINGE IVP PRN (02:22)
[2022-04-06] MEDS: Atropine Sulfate 1% 40 DROP/2 ML BOTTLE SL PRN (02:22)
== END 2022-04-06 03:05 | disposition expired | DRG 951 ==
LOC: 2ANU 14:35
PROVIDERS: ADMIT Internal Medicine Hospice and Palliative Medicine; ATTEND Internal Medicine Hospice and Palliative Medicine